=== PATIENT | female | born 1955 | race Two or more races ===

== ENCOUNTER 2019-01-14 11:32 | Emergency (ER) | payer MEDICAID ==
[~2019-01-14] VITALS: Ht 165.1 cm; Wt 83.9 kg
[~2019-01-14 11:32] MED LIST: CHOL20007 OR; DOCU-94 PO; FENO160T8 PO; INSUINJ37 SC; IPRIH INH; LIRA18IN2 SUBCUT; LOSA-49 PO; METF-370 PO; PANT40T PO; SIMV-8 PO; SUCR1SUS10 PO; TRAM50TA2 PO; TRAZ100T2 PO
[2019-01-14] MEDS ORDERED: NITROGLYCERIN 0.4 MG SL TAB SL ONE (11:45)
[2019-01-14] MEDS ORDERED: ASPirin 81 mg TAB PO ONE (11:45)
[2019-01-14 12:36] LABS: Urine Bacteria NONE SEEN /hpf (None Seen); Urine Blood Negative /uL (Negative); Urine Mucus FEW (None Seen); Urine Specific Gravity 1.023 (1.001-1.035); Urine WBC 1 /hpf (0 - 5)
[2019-01-14 12:58] LABS: Basophils # (auto) 0.1 uL; Basophils % (auto) 0.9 % (0.0-2.0); Eosinophils # (auto) 0.3 uL; Eosinophils % (auto) 4.6 % (0.0-7.0); Hematocrit 39.8 % (36.0-46.0); Hemoglobin 13.3 g/dL (12.2-16.2); Lymphocytes # (auto) 2.1 uL; Lymphocytes % (auto) 32.3 % (10.0-50.0); Mean Corpuscular Hemoglobin 29.5 pg (28.0-32.0); Mean Corpuscular Hgb Conc. 33.4 g/dL (32.0-36.0); Mean Corpuscular Volume 88.4 fL (80.0-100.0); Monocytes # (auto) 0.5 uL; Monocytes % (auto) 7.1 % (0.0-12.0); Neutrophils # (auto) 3.6 uL; Neutrophils % (auto) 55.1 % (37.0-80.0); Nucleated Red Blood Cells % 0.1 %; Platelet Count (auto) 225 10^3/uL (140-450); Red Cell Distribution Width 13.3 % (11.8-14.3); White Blood Cell 6.6 10^3/uL (4.4-10.8)
[2019-01-14 13:21] LABS: Alanine Aminotransferase 32 U/L (13-56); Albumin 3.8 g/dL (3.4-5.0); Anion Gap 8 (5-15); Blood Urea Nitrogen 15 mg/dL (7-18); Calcium 8.8 mg/dL (8.5-10.1); Carbon Dioxide 26 mmol/L (21-32); Chloride 104 mmol/L (98-107); Glucose 199 mg/dL (74-106); Potassium 3.8 mmol/L (3.5-5.1); Sodium 138 mmol/L (136-145)
[2019-01-14 13:26] LABS: Alkaline Phosphatase 81 U/L (45-117); Aspartate Aminotransferase 13 U/L (15-37); BUN/Creatinine Ratio 22.7; Bilirubin, Total 0.3 mg/dL (0.2-1.0); GFR African American 116 mL/min; GFR Non-African American 96 mL/min; Total Protein 7.4 g/dL (6.4-8.2)
[2019-01-14 13:54] VITALS: BP 146/76
== END 2019-01-14 13:55 | disposition home or self-care (01) ==
LOC: EDBD 11:32 → ER 11:39
DX: R07.89 Other chest pain (principal); I10 Essential (primary) hypertension; J44.9 Chronic obstructive pulmonary disease, unspecified; E11.9 Type 2 diabetes mellitus without complications; E78.5 Hyperlipidemia, unspecified; F17.210 Nicotine dependence, cigarettes, uncomplicated; Z90.49 Acquired absence of other specified parts of digestive tract; Z90.710 Acquired absence of both cervix and uterus; Z88.1 Allergy status to other antibiotic agents; Z88.6 Allergy status to analgesic agent
CPT/HCPCS: 36415; 80053; 81001; 83880; 84484; 85025; 93005

== ENCOUNTER 2019-05-13 07:24 | Emergency (ER) | payer MEDICAID ==
[~2019-05-13] VITALS: Ht 165.1 cm; Wt 82.1 kg
[~2019-05-13 07:24] MED LIST changes: +LOSA-39 PO; -LOSA-49 PO
[2019-05-13 09:02] LABS: Urine Bacteria FEW /hpf (None Seen); Urine Blood 2+ /uL (Negative); Urine WBC 223 /hpf (0 - 5); Urine WBC Clumps PRESENT /hpf (None Seen)
[2019-05-13 10:11] VITALS: BP 121/62
== END 2019-05-13 10:40 | disposition home or self-care (01) ==
LOC: ER 07:34
DX: N39.0 Urinary tract infection, site not specified (principal); J44.9 Chronic obstructive pulmonary disease, unspecified; E11.9 Type 2 diabetes mellitus without complications; E78.5 Hyperlipidemia, unspecified; I10 Essential (primary) hypertension; F17.210 Nicotine dependence, cigarettes, uncomplicated; Z88.8 Allergy status to other drugs, medicaments and biological substances; Z88.1 Allergy status to other antibiotic agents; Z79.899 Other long term (current) drug therapy; Z90.49 Acquired absence of other specified parts of digestive tract; Z90.710 Acquired absence of both cervix and uterus
CPT/HCPCS: 74176; 81001

== ENCOUNTER 2019-12-17 17:21 | Emergency (ER) | payer MEDICAID ==
[~2019-12-17] VITALS: Ht 165.1 cm; Wt 81.6 kg
[~2019-12-17 17:21] MED LIST changes: -TRAZ100T2 PO; +TRAZ100T3 PO
[2019-12-17 17:40] VITALS: BP 146/68
[2019-12-17] MEDS ORDERED: ALBUTEROL SULF 2.5 MG/0.5ML(0.5%) NEB SOLN NEB ONE (20:15)
[2019-12-17] MEDS ORDERED: IPRATROPIUM BROM 0.5 MG/2.5ML INH SOL NEB ONE (20:15)
[2019-12-17] MEDS ORDERED: cefTRIAXone SOD 1,000 MG VL IM ONE (20:15)
== END 2019-12-17 21:08 | disposition home or self-care (01) ==
LOC: ER 17:21
DX: J18.9 Pneumonia, unspecified organism (principal); J44.9 Chronic obstructive pulmonary disease, unspecified; E11.9 Type 2 diabetes mellitus without complications; E78.5 Hyperlipidemia, unspecified; I10 Essential (primary) hypertension
CPT/HCPCS: 71046; 93005; 94640; 96372; 99283; J0696; J7644

== ENCOUNTER 2020-01-10 17:19 | Emergency (ER) | payer MEDICAID ==
[~2020-01-10] VITALS: Ht 165.1 cm; Wt 82.1 kg
[2020-01-10 17:31] VITALS: BP 146/81
[2020-01-10] MEDS ORDERED: LIDOCAINE 1% (LOCAL ANESTH.) PF 5ml SDV ID ONE (18:30)
[2020-01-10] MEDS ORDERED: LIDOCAINE W/ EPINEPHRINE 1 % INJ 30ML ONE (18:40)
[2020-01-10] MEDS ORDERED: cefTRIAXone SOD 1,000 MG VL IM ONE (19:30)
[2020-01-10] MEDS ORDERED: HYDROcodone-ACET 7.5/325MG TAB PO ONE (19:45)
== END 2020-01-10 19:57 | disposition home or self-care (01) ==
LOC: ER 17:19
DX: L02.212 Cutaneous abscess of back [any part, except buttock and flank] (principal); J44.9 Chronic obstructive pulmonary disease, unspecified; I10 Essential (primary) hypertension; E11.9 Type 2 diabetes mellitus without complications; E78.5 Hyperlipidemia, unspecified; F17.210 Nicotine dependence, cigarettes, uncomplicated; Z90.49 Acquired absence of other specified parts of digestive tract; Z90.710 Acquired absence of both cervix and uterus; Z79.899 Other long term (current) drug therapy
CPT/HCPCS: 10060; 96372; 99283; C1887; J0696; J2001

== ENCOUNTER 2020-01-12 13:37 | Emergency (ER) | payer MEDICAID ==
[~2020-01-12] VITALS: Ht 165.1 cm; Wt 82.1 kg
[2020-01-12 16:41] VITALS: BP 164/71
== END 2020-01-12 16:48 | disposition home or self-care (01) ==
LOC: ER 13:37
DX: J44.9 Chronic obstructive pulmonary disease, unspecified (principal); E11.9 Type 2 diabetes mellitus without complications; E78.5 Hyperlipidemia, unspecified; I10 Essential (primary) hypertension; F17.210 Nicotine dependence, cigarettes, uncomplicated; Z90.49 Acquired absence of other specified parts of digestive tract; Z48.01 Encounter for change or removal of surgical wound dressing; Z90.710 Acquired absence of both cervix and uterus

== ENCOUNTER 2020-01-14 18:06 | Emergency (ER) | payer MEDICAID ==
[~2020-01-14] VITALS: Ht 165.1 cm; Wt 82.1 kg
[2020-01-14] MEDS ORDERED: KETOROLAC TROMETH 60MG/2ML VIAL IM ONE (20:30)
[2020-01-14] MEDS ORDERED: LIDOCAINE 1% HCL (LOCAL ANESTH.) INJ 20ML MDV ONE (20:33)
[2020-01-14] MEDS ORDERED: LIDOCAINE 1% HCL (LOCAL ANESTH.) INJ 20ML MDV ID ONE (20:45)
[2020-01-14 21:46] VITALS: BP 144/88
== END 2020-01-14 22:38 | disposition home or self-care (01) ==
LOC: ER 18:07
DX: L02.212 Cutaneous abscess of back [any part, except buttock and flank] (principal); J44.9 Chronic obstructive pulmonary disease, unspecified; I10 Essential (primary) hypertension; E11.9 Type 2 diabetes mellitus without complications; E78.5 Hyperlipidemia, unspecified; F17.210 Nicotine dependence, cigarettes, uncomplicated; Z90.49 Acquired absence of other specified parts of digestive tract; Z90.710 Acquired absence of both cervix and uterus; Z79.899 Other long term (current) drug therapy
CPT/HCPCS: 10060; 96372; 99283; C1887; J1885; J2001

== ENCOUNTER 2020-01-16 18:15 | Emergency (ER) | payer MEDICAID ==
[~2020-01-16] VITALS: Ht 165.1 cm; Wt 82.1 kg
[2020-01-16] MEDS ORDERED: KETOROLAC TROMETH 60MG/2ML VIAL IM ONE (20:15)
[2020-01-16 20:43] VITALS: BP 122/66
== END 2020-01-16 21:13 | disposition home or self-care (01) ==
LOC: ER 18:15
DX: Z48.01 Encounter for change or removal of surgical wound dressing (principal)
CPT/HCPCS: 96372; 99283; J1885

== ENCOUNTER 2020-01-19 18:06 | Emergency (ER) | payer MEDICAID ==
[~2020-01-19] VITALS: Ht 165.1 cm; Wt 82.1 kg
[2020-01-19 19:21] VITALS: BP 122/77
== END 2020-01-19 20:02 | disposition home or self-care (01) ==
LOC: ER 18:06
DX: L02.212 Cutaneous abscess of back [any part, except buttock and flank] (principal); J44.9 Chronic obstructive pulmonary disease, unspecified; E11.9 Type 2 diabetes mellitus without complications; E78.5 Hyperlipidemia, unspecified; I10 Essential (primary) hypertension; Z48.00 Encounter for change or removal of nonsurgical wound dressing; Z90.49 Acquired absence of other specified parts of digestive tract; Z90.710 Acquired absence of both cervix and uterus

== ENCOUNTER 2020-01-22 18:33 | Emergency (ER) | payer MEDICAID ==
[~2020-01-22] VITALS: Ht 165.1 cm; Wt 82.1 kg
[2020-01-22 22:40] VITALS: BP 135/66
== END 2020-01-22 23:00 | disposition home or self-care (01) ==
LOC: ER 18:33
DX: Z48.01 Encounter for change or removal of surgical wound dressing (principal); I10 Essential (primary) hypertension; J44.9 Chronic obstructive pulmonary disease, unspecified; E78.5 Hyperlipidemia, unspecified; E11.9 Type 2 diabetes mellitus without complications

== ENCOUNTER 2020-01-26 09:46 | Emergency (ER) | payer MEDICAID ==
[~2020-01-26] VITALS: Ht 165.1 cm; Wt 80.7 kg
[2020-01-26 10:32] VITALS: BP 178/88
== END 2020-01-26 10:43 | disposition home or self-care (01) ==
LOC: ER 09:46
DX: Z48.01 Encounter for change or removal of surgical wound dressing (principal); J44.9 Chronic obstructive pulmonary disease, unspecified; E11.9 Type 2 diabetes mellitus without complications; E78.5 Hyperlipidemia, unspecified; I10 Essential (primary) hypertension

== ENCOUNTER 2020-05-22 10:37 | Inpatient (IN) | payer MEDICAID ==
[~2020-05-22] VITALS: Ht 165.1 cm; Wt 81.6 kg
[2020-05-22 12:11] LABS: Basophils # (auto) 0.1 10 ^3/uL (0-0.2); Eosinophils # (auto) 0.3 10 ^3/uL (0-0.8); Eosinophils % (auto) 4.3 % (0.0-7.0); Hemoglobin 12.8 g/dL (12.2-16.2); Lymphocytes # (auto) 2.4 10 ^3/uL (0.4-5.4); Mean Corpuscular Hemoglobin 29.3 pg (28.0-32.0); Mean Corpuscular Hgb Conc. 33.6 g/dL (32.0-36.0); Mean Corpuscular Volume 87.2 fL (80.0-100.0); Monocytes # (auto) 0.4 10 ^3/uL (0-1.3); Monocytes % (auto) 6.6 % (0.0-12.0); Neutrophils # (auto) 3.6 10 ^3/uL (1.6-8.6); Neutrophils % (auto) 53.1 % (37.0-80.0); Nucleated Red Blood Cells % 0.1 %; Platelet Count (auto) 225 10^3/uL (140-450); Red Blood Cells 4.35 10^6/uL (4.0-5.20); Red Cell Distribution Width 13.7 % (11.8-14.3); White Blood Cell 6.8 10^3/uL (4.4-10.8)
[2020-05-22 12:40] LABS: Albumin 3.9 g/dL (3.4-5.0); Anion Gap 3 (5-15); Blood Urea Nitrogen 16 mg/dL (7-18); Carbon Dioxide 26 mmol/L (21-32); Chloride 107 mmol/L (98-107); Glucose 184 mg/dL (74-106); Potassium 3.7 mmol/L (3.5-5.1); Sodium 136 mmol/L (136-145)
[2020-05-22 12:45] LABS: Alanine Aminotransferase 35 U/L (13-56); Alkaline Phosphatase 89 U/L (45-117); Aspartate Aminotransferase 18 U/L (15-37); BUN/Creatinine Ratio 16.2; Bilirubin, Total 0.4 mg/dL (0.2-1.0); GFR African American 73 mL/min; GFR Non-African American 60 mL/min; Total Protein 7.3 g/dL (6.4-8.2)
[2020-05-22 13:33] LABS: INR 1.02 (0.9-1.15); Partial Thromboplastin Time 26.2 sec (23.0-31.2)
[2020-05-22] MEDS ORDERED: IODIXANOL 320MG/ML 100ML BTL IV ONE ×2 (16:09→16:40)
[2020-05-22] MEDS ORDERED: IOHEXOL 350 MG/ML 100ML IJ ONE (16:25)
[2020-05-22] MEDS ORDERED: MORPHINE SULF INJ 2 MG/ML SYRINGE 1ML IV ONE (19:15)
[2020-05-22] MEDS ORDERED: ONDANSETRON HCL 4 MG/2 ML VIAL IV ONE (19:15)
[2020-05-22] MEDS ORDERED: DEXTROSE (50%) 50ML SYRG IV PRN (19:30)
[2020-05-22] MEDS ORDERED: MORPHINE SULFATE 4 MG/ML SYR/VIAL IV PRN (19:30)
[2020-05-22] MEDS ORDERED: LORazepam 0.5 MG TAB PO PRN (19:30)
[2020-05-22] MEDS ORDERED: ALUM & MAG HYDROX-SIMETH LIQ(MAALOX) 30 ML PO ONE (19:30)
[2020-05-22] MEDS ORDERED: ONDANSETRON HCL 4 MG/2 ML VIAL IV PRN (19:30)
[2020-05-22] MEDS ORDERED: NITROGLYCERIN 0.4 MG SL TAB SL PRN ×2 (19:30)
[2020-05-22] MEDS ORDERED: IPRATROPIUM BROM 0.5 MG/2.5ML INH SOL NEB PRN (19:45)
[2020-05-22] MEDS ORDERED: LOSARTAN POTASSIUM 50 MG TAB PO ONE (19:45)
[2020-05-22] MEDS ORDERED: ALBUTEROL SULF 2.5 MG/0.5ML(0.5%) NEB SOLN NEB PRN (19:45)
[2020-05-22] MEDS ORDERED: cloNIDine HCL 0.1 MG TAB PO PRN (19:45)
[2020-05-22] MEDS: SODIUM CHLORIDE 0.9% 1,000 ML IV SCH (20:03)
[2020-05-22 20:09] LABS: Urine Bacteria FEW /hpf (None Seen); Urine Mucus FEW (None Seen); Urine WBC 18 /hpf (0 - 5)
[2020-05-22] MEDS: ACCU-CHEK COMFORT CURVE STRIP VI SCH (22:00)
[2020-05-22] MEDS: traZODone HCL 50 MG TAB PO SCH (22:59)
[2020-05-22] MEDS: ATORVASTATIN 20 MG TAB PO SCH (23:00)
[2020-05-22] MEDS: InsuLIN REG 1unit/0.01ml Soln (100units/ml) SC SCH (23:00)
[2020-05-22] MEDS: METOPROLOL TARTRATE 25 MG TAB PO SCH (23:00)
[2020-05-23 01:16] VITALS: BP 141/69
[2020-05-23 05:00] VITALS: BP 120/71
[2020-05-23] MEDS: ACCU-CHEK COMFORT CURVE STRIP VI SCH ×4 (06:02→21:55)
[2020-05-23] MEDS: InsuLIN REG 1unit/0.01ml Soln (100units/ml) SC SCH ×5 (06:04→21:56)
[2020-05-23] MEDS: SODIUM CHLORIDE 0.9% 1,000 ML IV SCH (08:27)
[2020-05-23] MEDS ORDERED: MAGNESIUM SULFATE 1GM/100ML 100 ML IV ONE (09:15)
[2020-05-23 09:16] VITALS: BP 112/60
[2020-05-23] MEDS: DOCUSATE SOD 100 MG CAP PO SCH (09:33)
[2020-05-23] MEDS: LOSARTAN POTASSIUM 25 MG TAB PO SCH (09:33)
[2020-05-23] MEDS: ASPirin 81 mg TAB PO SCH (09:33)
[2020-05-23] MEDS: METOPROLOL TARTRATE 25 MG TAB PO SCH ×2 (09:34→21:55)
[2020-05-23] MEDS: CHOLECALCIFEROL (VITD3) 2,000 UNIT CAP PO SCH (09:34)
[2020-05-23] MEDS: ENOXAPARIN SOD 40 MG/0.4 ML SYRINGE SC SCH (09:34)
[2020-05-23 10:07] LABS: Cholesterol 109 mg/dL (< 200)
[2020-05-23 10:09] LABS: HDL Cholesterol 36 mg/dL (40-59); LDL Cholesterol 61 mg/dL (< 100); Triglycerides 169 mg/dL (< 150)
[2020-05-23 12:29] VITALS: BP 118/73
[2020-05-23] MEDS: NICOTINE 7MG/24HR TOPICAL PATCH TD SCH (12:31)
[2020-05-23] MEDS: MORPHINE SULF INJ 2 MG/ML SYRINGE 1ML IV PRN ×2 (13:05→19:26)
[2020-05-23 16:50] VITALS: BP 129/75
[2020-05-23 21:45] VITALS: BP 151/66
[2020-05-23] MEDS: PANTOPRAZOLE 40 MG TAB PO SCH (21:54)
[2020-05-23] MEDS: ATORVASTATIN 20 MG TAB PO SCH (21:55)
[2020-05-23] MEDS: traZODone HCL 50 MG TAB PO SCH (21:55)
[2020-05-24 04:59] VITALS: BP 131/71
[2020-05-24] MEDS: ACCU-CHEK COMFORT CURVE STRIP VI SCH ×4 (06:32→22:04)
[2020-05-24] MEDS: InsuLIN REG 1unit/0.01ml Soln (100units/ml) SC SCH ×4 (06:32→22:07)
[2020-05-24 09:00] VITALS: BP 168/86
[2020-05-24] MEDS ORDERED: ADENOSINE 69 MG in GIVE UN-DILUTED 0 ML IV ONE (09:15)
[2020-05-24 10:25] VITALS: BP 152/99
[2020-05-24] MEDS: DOCUSATE SOD 100 MG CAP PO SCH (12:22)
[2020-05-24] MEDS: ASPirin 81 mg TAB PO SCH (12:22)
[2020-05-24] MEDS: LOSARTAN POTASSIUM 25 MG TAB PO SCH (12:23)
[2020-05-24] MEDS: METOPROLOL TARTRATE 25 MG TAB PO SCH ×2 (12:23→22:04)
[2020-05-24] MEDS: PANTOPRAZOLE 40 MG TAB PO SCH (12:24)
[2020-05-24] MEDS: NICOTINE 7MG/24HR TOPICAL PATCH TD SCH (12:25)
[2020-05-24] MEDS: CHOLECALCIFEROL (VITD3) 2,000 UNIT CAP PO SCH (12:26)
[2020-05-24] MEDS: ENOXAPARIN SOD 40 MG/0.4 ML SYRINGE SC SCH (12:31)
[2020-05-24 13:00] VITALS: BP 159/95
[2020-05-24 17:00] VITALS: BP 142/83
[2020-05-24] MEDS: traZODone HCL 50 MG TAB PO SCH (22:04)
[2020-05-24] MEDS: ATORVASTATIN 20 MG TAB PO SCH (22:04)
[2020-05-24 22:30] VITALS: BP 147/79
[2020-05-25 05:18] VITALS: BP 153/90
[2020-05-25] MEDS: InsuLIN REG 1unit/0.01ml Soln (100units/ml) SC SCH ×2 (06:59→11:55)
[2020-05-25] MEDS: ACCU-CHEK COMFORT CURVE STRIP VI SCH ×2 (06:59→11:54)
[2020-05-25] MEDS: ASPirin 81 mg TAB PO SCH (09:57)
[2020-05-25] MEDS: LOSARTAN POTASSIUM 25 MG TAB PO SCH (09:59)
[2020-05-25] MEDS: ENOXAPARIN SOD 40 MG/0.4 ML SYRINGE SC SCH (10:00)
[2020-05-25] MEDS: DOCUSATE SOD 100 MG CAP PO SCH (10:00)
[2020-05-25] MEDS: METOPROLOL TARTRATE 25 MG TAB PO SCH (10:00)
[2020-05-25] MEDS: PANTOPRAZOLE 40 MG TAB PO SCH (10:00)
[2020-05-25] MEDS: CHOLECALCIFEROL (VITD3) 2,000 UNIT CAP PO SCH (10:00)
[2020-05-25] MEDS: NICOTINE 7MG/24HR TOPICAL PATCH TD SCH (10:02)
[2020-05-25 11:26] VITALS: BP 153/85
== END 2020-05-25 12:15 | disposition home or self-care (01) | DRG 243 ==
LOC: ER 10:37 → TELE 10:38 → TELE-WESTW 05-23
PROVIDERS: ADMIT Hospitalist; ATTEND Hospitalist
DX: K21.9 Gastro-esophageal reflux disease without esophagitis (principal); I16.9 Hypertensive crisis, unspecified; E66.9 Obesity, unspecified; J44.9 Chronic obstructive pulmonary disease, unspecified; E11.9 Type 2 diabetes mellitus without complications; F32.9 Major depressive disorder, single episode, unspecified; E78.5 Hyperlipidemia, unspecified; E83.42 Hypomagnesemia; Q25.72 Congenital pulmonary arteriovenous malformation; I10 Essential (primary) hypertension; F17.210 Nicotine dependence, cigarettes, uncomplicated; Z90.710 Acquired absence of both cervix and uterus; Z79.4 Long term (current) use of insulin; Z68.30 Body mass index [BMI] 30.0-30.9, adult; Z80.1 Family history of malignant neoplasm of trachea, bronchus and lung; Z82.0 Family history of epilepsy and other diseases of the nervous system; Z82.49 Family history of ischemic heart disease and other diseases of the circulatory system; Z90.49 Acquired absence of other specified parts of digestive tract; Z79.84 Long term (current) use of oral hypoglycemic drugs
CPT/HCPCS: 36415; 71046; 71275; 78452; 80053; 80061; 81015; 82962; 83036; 83735; 83880; 84443; 84484; 85025; 85379; 85610; 85730; 93005; 93017; 93306; G0378; J0153; J1815; J2405; Q9967

== ENCOUNTER 2022-01-11 17:55 | Emergency (ER) | payer OTHER, MEDICAID ==
[~2022-01-11] VITALS: Ht 165.1 cm; Wt 79.4 kg
[2022-01-11] MEDS ORDERED: FLUCONAZOLE 100 MG TAB PO ONE (19:30)
[2022-01-11 19:41] LABS: Urine Bacteria NONE SEEN /hpf (None Seen); Urine Blood Negative /uL (Negative); Urine Specific Gravity 1.006 (1.001-1.035); Urine WBC 1 /hpf (0 - 5)
[2022-01-11] MEDS ORDERED: KETOROLAC TROMETH 30 MG/ML 1ML VIAL IM ONE (20:30)
[2022-01-11 22:00] VITALS: BP 158/83
== END 2022-01-11 23:08 | disposition home or self-care (01) ==
LOC: ER 17:55
DX: B37.3 Candidiasis of vulva and vagina (principal); E11.65 Type 2 diabetes mellitus with hyperglycemia; J44.9 Chronic obstructive pulmonary disease, unspecified; E78.5 Hyperlipidemia, unspecified; I10 Essential (primary) hypertension; F17.210 Nicotine dependence, cigarettes, uncomplicated; Z90.49 Acquired absence of other specified parts of digestive tract; Z90.710 Acquired absence of both cervix and uterus
CPT/HCPCS: 74176; 81001; 82962; 96372; 99285; J1885

== ENCOUNTER 2022-06-21 15:38 | Emergency (ER) | payer OTHER, MEDICAID ==
[~2022-06-21] VITALS: Ht 165.1 cm; Wt 81.0 kg
[2022-06-21] MEDS ORDERED: HYDROcodone-ACET 5/325MG TAB PO ONE (17:45)
[2022-06-21 18:45] VITALS: BP 120/72
[2022-06-21] MEDS ORDERED: IBUP800T27 PO (18:56)
== END 2022-06-21 19:04 | disposition home or self-care (01) ==
LOC: ER 15:38
DX: S90.32XA Contusion of left foot, initial encounter (principal); I10 Essential (primary) hypertension; E11.9 Type 2 diabetes mellitus without complications; J44.9 Chronic obstructive pulmonary disease, unspecified; E78.5 Hyperlipidemia, unspecified; F17.210 Nicotine dependence, cigarettes, uncomplicated; Z90.49 Acquired absence of other specified parts of digestive tract; Z90.710 Acquired absence of both cervix and uterus; Z79.4 Long term (current) use of insulin; Z79.899 Other long term (current) drug therapy; Z79.1 Long term (current) use of non-steroidal anti-inflammatories (NSAID); W20.8XXA Other cause of strike by thrown, projected or falling object, initial encounter; Y93.89 Activity, other specified; Y92.89 Other specified places as the place of occurrence of the external cause; Y99.8 Other external cause status
CPT/HCPCS: 73630

== ENCOUNTER 2022-07-08 23:26 | Emergency (ER) | payer OTHER, MEDICAID ==
[~2022-07-08] VITALS: Ht 165.1 cm; Wt 70.0 kg
[~2022-07-08 23:26] MED LIST changes: +IBUP800T27 PO
[2022-07-09 00:35] LABS: Basophils # (auto) 0.1 10 ^3/uL (0-0.2); Basophils % (auto) 0.7 % (0.0-2.0); Eosinophils # (auto) 0.2 10 ^3/uL (0-0.8); Eosinophils % (auto) 2.4 % (0.0-7.0); Hemoglobin 13.4 g/dL (12.2-16.2); Lymphocytes # (auto) 2.4 10 ^3/uL (0.4-5.4); Mean Corpuscular Hemoglobin 29.9 pg (28.0-32.0); Mean Corpuscular Hgb Conc. 34.3 g/dL (32.0-36.0); Mean Corpuscular Volume 87.3 fL (80.0-100.0); Monocytes # (auto) 0.6 10 ^3/uL (0-1.3); Monocytes % (auto) 7.6 % (0.0-12.0); Neutrophils # (auto) 5.2 10 ^3/uL (1.6-8.6); Neutrophils % (auto) 61.3 % (37.0-80.0); Red Blood Cells 4.47 10^6/uL (4.0-5.20); Red Cell Distribution Width 12.9 % (11.8-14.3); White Blood Cell 8.5 10^3/uL (4.4-10.8)
[2022-07-09] MEDS ORDERED: cloNIDine HCL 0.1 MG TAB PO ONE (00:45)
[2022-07-09 00:54] LABS: Albumin 3.8 g/dL (3.4-5.0); BUN/Creatinine Ratio 15.8; Calcium 9.3 mg/dL (8.5-10.1); Potassium 3.5 mmol/L (3.5-5.1)
[2022-07-09 00:57] LABS: Bilirubin, Total 0.3 mg/dL (0.2-1.0)
[2022-07-09 01:45] VITALS: BP 185/95
== END 2022-07-09 01:49 | disposition home or self-care (01) ==
LOC: EDBD 23:26 → ER 23:28
DX: I10 Essential (primary) hypertension (principal); E11.9 Type 2 diabetes mellitus without complications; F41.9 Anxiety disorder, unspecified; J44.9 Chronic obstructive pulmonary disease, unspecified; E78.5 Hyperlipidemia, unspecified; F17.210 Nicotine dependence, cigarettes, uncomplicated; Z90.710 Acquired absence of both cervix and uterus; Z90.49 Acquired absence of other specified parts of digestive tract
CPT/HCPCS: 36415; 71045; 80053; 83880; 84484; 85025; 93005

== ENCOUNTER 2023-01-13 10:56 | Inpatient (IN) | payer OTHER, MEDICAID ==
[~2023-01-13] VITALS: Ht 165.1 cm; Wt 83.7 kg
[2023-01-13 11:36] LABS: Basophils # (auto) 0.1 10 ^3/uL (0-0.2); Basophils % (auto) 0.5 % (0.0-2.0); Eosinophils # (auto) 0.2 10 ^3/uL (0-0.8); Eosinophils % (auto) 1.1 % (0.0-7.0); Hematocrit 42.2 % (36.0-46.0); Lymphocytes # (auto) 3.1 10 ^3/uL (0.4-5.4); Mean Corpuscular Hemoglobin 29.1 pg (28.0-32.0); Mean Corpuscular Hgb Conc. 33.2 g/dL (32.0-36.0); Mean Corpuscular Volume 87.6 fL (80.0-100.0); Monocytes # (auto) 0.8 10 ^3/uL (0-1.3); Monocytes % (auto) 5.2 % (0.0-12.0); Neutrophils # (auto) 10.7 10 ^3/uL (1.6-8.6); Neutrophils % (auto) 72.2 % (37.0-80.0); Red Blood Cells 4.82 10^6/uL (4.0-5.20); Red Cell Distribution Width 13.1 % (11.8-14.3); White Blood Cell 14.8 10^3/uL (4.4-10.8)
[2023-01-13 11:51] LABS: Albumin 3.8 g/dL (3.4-5.0); Calcium 9.7 mg/dL (8.5-10.1); Potassium 3.5 mmol/L (3.5-5.1)
[2023-01-13 11:55] LABS: BUN/Creatinine Ratio 15.5 (10.0-20.0); Bilirubin, Total 0.5 mg/dL (0.2-1.0); Total Protein 7.4 g/dL (6.4-8.2)
[2023-01-13 12:14] LABS: Urine Bacteria NONE SEEN /hpf (None Seen); Urine Blood Negative /uL (Negative); Urine Mucus FEW (None Seen); Urine Specific Gravity 1.019 (1.001-1.035); Urine WBC 3 /hpf (0 - 5)
[2023-01-13] MEDS ORDERED: PROCHLORPERAZINE EDISYLATE 5 MG/ML 2ML VIAL IM ONE (12:45)
[2023-01-13] MEDS ORDERED: PANTOPRAZOLE 40 MG/10 ML VIAL INJ IV ONE (12:45)
[2023-01-13] MEDS ORDERED: MORPHINE SULFATE INJ 2 MG/ml SYRG IM ONE (12:45)
[2023-01-13] MEDS ORDERED: SODIUM CHLORIDE 0.9% 1,000 ML IVB ONE (12:45)
[2023-01-13] MEDS ORDERED: ONDANSETRON HCL 4 MG/2 ML VIAL IV ONE (15:45)
[2023-01-13] MEDS ORDERED: LIDOCAINE VISCOUS 2% 15ML UD MT ONE (15:45)
[2023-01-13] MEDS ORDERED: MORPHINE SULFATE 4 MG/ML SYR/VIAL IV ONE (15:45)
[2023-01-13] MEDS ORDERED: NITROGLYCERIN 0.4 MG SL TAB SL PRN (16:00)
[2023-01-13] MEDS ORDERED: DEXTROSE (50%) 50ML SYRG IV PRN (16:00)
[2023-01-13] MEDS ORDERED: cefTRIAXone 1GM/50ML D5W 50 ML IV ONE (16:00)
[2023-01-13] MEDS ORDERED: MORPHINE SULFATE INJ 2 MG/ml SYRG IV PRN (16:00)
[2023-01-13] MEDS: SOD CHL 0.45% WITH 20MEQ KCL 1,000 ML IV SCH (16:53)
[2023-01-13] MEDS: InsuLIN REG 1unit/0.01ml Soln (100units/ml) SC SCH ×2 (18:25→23:47)
[2023-01-13] MEDS: ACCU-CHEK COMFORT CURVE STRIP VI SCH ×2 (18:26→23:46)
[2023-01-13] MEDS: MORPHINE SULFATE INJ 2 MG/ml SYRG IV PRN ×2 (20:31→23:48)
[2023-01-13] MEDS: FAMOTIDINE (10MG/ML) 2ML VL IV SCH (22:28)
[2023-01-13] MEDS: PROMETHAZINE HCL 25 MG/ML 1ML IV PRN (23:46)
[2023-01-13] MEDS: MORPHINE SULFATE 4 MG/ML SYR/VIAL IV PRN (23:48)
[2023-01-14] MEDS ORDERED: ALBU108A5 INH (00:23)
[2023-01-14 05:00] VITALS: BP 149/81
[2023-01-14] MEDS: PROMETHAZINE HCL 25 MG/ML 1ML IV PRN (06:03)
[2023-01-14] MEDS: ACCU-CHEK COMFORT CURVE STRIP VI SCH ×4 (06:03→23:56)
[2023-01-14] MEDS: SOD CHL 0.45% WITH 20MEQ KCL 1,000 ML IV SCH ×2 (06:03→18:38)
[2023-01-14] MEDS: MORPHINE SULFATE 4 MG/ML SYR/VIAL IV PRN ×2 (06:04→23:35)
[2023-01-14] MEDS: InsuLIN REG 1unit/0.01ml Soln (100units/ml) SC SCH ×4 (06:04→23:57)
[2023-01-14 06:12] LABS: INR 1.02 (0.9-1.15); Partial Thromboplastin Time 25.4 sec (24.6-33.4)
[2023-01-14 06:30] LABS: Basophils # (auto) 0 10 ^3/uL (0-0.2); Basophils % (auto) 0.2 % (0.0-2.0); Eosinophils # (auto) 0.1 10 ^3/uL (0-0.8); Hematocrit 38.2 % (36.0-46.0); Hemoglobin 12.8 g/dL (12.2-16.2); Lymphocytes # (auto) 1.6 10 ^3/uL (0.4-5.4); Lymphocytes % (auto) 14.4 % (10.0-50.0); Mean Corpuscular Hemoglobin 29.5 pg (28.0-32.0); Mean Corpuscular Hgb Conc. 33.6 g/dL (32.0-36.0); Mean Corpuscular Volume 87.7 fL (80.0-100.0); Monocytes % (auto) 8.5 % (0.0-12.0); Neutrophils # (auto) 8.6 10 ^3/uL (1.6-8.6); Neutrophils % (auto) 75.9 % (37.0-80.0); Nucleated Red Blood Cells % 0.1 %; Red Blood Cells 4.36 10^6/uL (4.0-5.20); Red Cell Distribution Width 13.1 % (11.8-14.3); White Blood Cell 11.4 10^3/uL (4.4-10.8)
[2023-01-14 06:37] LABS: Potassium 3.8 mmol/L (3.5-5.1)
[2023-01-14 06:42] LABS: BUN/Creatinine Ratio 24.6 (10.0-20.0); Calcium 8.6 mg/dL (8.5-10.1)
[2023-01-14 08:02] VITALS: BP 147/78
[2023-01-14] MEDS: cefTRIAXone 1GM/50ML D5W 50 ML IV SCH (08:44)
[2023-01-14 09:00] VITALS: BP 147/78
[2023-01-14] MEDS: FAMOTIDINE (10MG/ML) 2ML VL IV SCH ×2 (11:12→23:34)
[2023-01-14 13:00] VITALS: BP 135/68
[2023-01-14 16:58] VITALS: BP 152/71
[2023-01-14] MEDS ORDERED: LACTULOSE 20Gm/30ML SOLN PO PRN (18:15)
[2023-01-14 22:00] VITALS: BP 140/81
[2023-01-15] MEDS: SOD CHL 0.45% WITH 20MEQ KCL 1,000 ML IV SCH (02:57)
[2023-01-15 05:00] VITALS: BP 144/71
[2023-01-15] MEDS: InsuLIN REG 1unit/0.01ml Soln (100units/ml) SC SCH ×4 (06:00→18:00)
[2023-01-15] MEDS: ACCU-CHEK COMFORT CURVE STRIP VI SCH ×3 (06:08→18:00)
[2023-01-15 06:47] LABS: Calcium 8.8 mg/dL (8.5-10.1); Potassium 3.8 mmol/L (3.5-5.1)
[2023-01-15 06:50] LABS: BUN/Creatinine Ratio 19.7 (10.0-20.0)
[2023-01-15 06:57] LABS: Basophils # (auto) 0 10 ^3/uL (0-0.2); Basophils % (auto) 0.4 % (0.0-2.0); Eosinophils # (auto) 0.3 10 ^3/uL (0-0.8); Eosinophils % (auto) 4.3 % (0.0-7.0); Hematocrit 36.9 % (36.0-46.0); Hemoglobin 12.5 g/dL (12.2-16.2); Lymphocytes # (auto) 2.6 10 ^3/uL (0.4-5.4); Lymphocytes % (auto) 35.6 % (10.0-50.0); Mean Corpuscular Hemoglobin 30.1 pg (28.0-32.0); Mean Corpuscular Volume 88.4 fL (80.0-100.0); Monocytes # (auto) 0.6 10 ^3/uL (0-1.3); Monocytes % (auto) 8.6 % (0.0-12.0); Neutrophils # (auto) 3.7 10 ^3/uL (1.6-8.6); Neutrophils % (auto) 51.1 % (37.0-80.0); Nucleated Red Blood Cells % 0.1 %; Red Blood Cells 4.17 10^6/uL (4.0-5.20); Red Cell Distribution Width 13.4 % (11.8-14.3); White Blood Cell 7.2 10^3/uL (4.4-10.8)
[2023-01-15 08:00] VITALS: BP 164/86
[2023-01-15 09:00] VITALS: BP 150/85
[2023-01-15] MEDS: cefTRIAXone 1GM/50ML D5W 50 ML IV SCH (09:01)
[2023-01-15] MEDS: FAMOTIDINE (10MG/ML) 2ML VL IV SCH ×2 (09:11→22:09)
[2023-01-15] MEDS: MORPHINE SULFATE INJ 2 MG/ml SYRG IV PRN ×3 (12:07→22:18)
[2023-01-15 13:00] VITALS: BP 160/99
[2023-01-15] MEDS: hydrALAZINE HCL 20 MG/ML VL IV PRN ×2 (15:29→22:10)
[2023-01-15 17:00] VITALS: BP 162/86
[2023-01-15 22:00] VITALS: BP 174/91
[2023-01-16] MEDS: ACCU-CHEK COMFORT CURVE STRIP VI SCH ×4 (00:55→18:00)
[2023-01-16] MEDS: InsuLIN REG 1unit/0.01ml Soln (100units/ml) SC SCH ×4 (01:00→17:59)
[2023-01-16 05:00] VITALS: BP 162/73
[2023-01-16] MEDS: SOD CHL 0.45% WITH 20MEQ KCL 1,000 ML IV SCH ×2 (05:28→10:05)
[2023-01-16] MEDS: hydrALAZINE HCL 20 MG/ML VL IV PRN (06:40)
[2023-01-16 09:00] VITALS: BP 138/74
[2023-01-16] MEDS: FAMOTIDINE (10MG/ML) 2ML VL IV SCH (09:50)
[2023-01-16] MEDS: cefTRIAXone 1GM/50ML D5W 50 ML IV SCH ×3 (09:52→14:03)
[2023-01-16 13:00] VITALS: BP 148/76
[2023-01-16 16:46] VITALS: BP 132/71
[2023-01-16 22:00] VITALS: BP 143/74
[2023-01-16] MEDS ORDERED: traZODone HCL 50 MG TAB PO PRN (22:00)
[2023-01-17] MEDS: ACCU-CHEK COMFORT CURVE STRIP VI SCH ×4 (00:14→17:34)
[2023-01-17] MEDS: InsuLIN REG 1unit/0.01ml Soln (100units/ml) SC SCH ×4 (00:30→17:34)
[2023-01-17 05:07] VITALS: BP 135/76
[2023-01-17] MEDS: cefTRIAXone 1GM/50ML D5W 50 ML IV SCH (08:41)
[2023-01-17 09:00] VITALS: BP 126/70
[2023-01-17 13:00] VITALS: BP 143/70
[2023-01-17 16:49] VITALS: BP 133/70
[2023-01-17] MEDS ORDERED: DOCU-94 PO (17:10)
== END 2023-01-17 17:50 | disposition home or self-care (01) | DRG 388 ==
LOC: ER 10:56 → OVERFLOW 15:47 → WEST WING 23:13
PROVIDERS: ADMIT Hospitalist; ATTEND Hospitalist
PROC: 0D9670Z Drainage of Stomach with Drainage Device, Via Natural or Artificial Opening (ICD-10-PCS; principal; 2023-01-13)
DX: K56.609 Unspecified intestinal obstruction, unspecified as to partial versus complete obstruction (principal); Q25.72 Congenital pulmonary arteriovenous malformation; F41.9 Anxiety disorder, unspecified; I10 Essential (primary) hypertension; K21.9 Gastro-esophageal reflux disease without esophagitis; K57.30 Diverticulosis of large intestine without perforation or abscess without bleeding; E11.9 Type 2 diabetes mellitus without complications; K76.0 Fatty (change of) liver, not elsewhere classified; Z80.1 Family history of malignant neoplasm of trachea, bronchus and lung; Z82.0 Family history of epilepsy and other diseases of the nervous system; Z90.710 Acquired absence of both cervix and uterus; Z93.3 Colostomy status; Z90.49 Acquired absence of other specified parts of digestive tract
CPT/HCPCS: 36415; 71045; 74176; 80048; 80053; 81001; 82962; 83690; 84484; 85025; 85610; 85730; 93005; 96361; 96365; 96372; 96375; C9113; G0378; J0696; J1815; J2405; J3490

== ENCOUNTER 2023-04-19 18:09 | Emergency (ER) | payer OTHER, MEDICAID ==
[~2023-04-19] VITALS: Ht 165.1 cm; Wt 81.9 kg
[~2023-04-19 18:09] MED LIST changes: +ALBU108A5 INH; +FENO160T PO; -FENO160T8 PO; -IBUP800T27 PO; -LIRA18IN2 SUBCUT; -LOSA-39 PO; +LOSA100T58 PO; -PANT40T PO; -SIMV-8 PO; +SIMV20TA20 PO; -SUCR1SUS10 PO; +TRAZ-228 PO; -TRAZ100T3 PO
[2023-04-19 21:02] LABS: Basophils # (auto) 0.1 10 ^3/uL (0-0.2); Basophils % (auto) 0.6 % (0.0-2.0); Eosinophils # (auto) 0.2 10 ^3/uL (0-0.8); Eosinophils % (auto) 2.8 % (0.0-7.0); Hematocrit 40.1 % (36.0-46.0); Hemoglobin 13.3 g/dL (12.2-16.2); Lymphocytes # (auto) 2.8 10 ^3/uL (0.4-5.4); Lymphocytes % (auto) 32.8 % (10.0-50.0); Mean Corpuscular Hemoglobin 29.8 pg (28.0-32.0); Mean Corpuscular Hgb Conc. 33.3 g/dL (32.0-36.0); Mean Corpuscular Volume 89.6 fL (80.0-100.0); Monocytes # (auto) 0.7 10 ^3/uL (0-1.3); Monocytes % (auto) 7.9 % (0.0-12.0); Neutrophils # (auto) 4.7 10 ^3/uL (1.6-8.6); Neutrophils % (auto) 55.9 % (37.0-80.0); Nucleated Red Blood Cells % 0.1 %; Red Blood Cells 4.47 10^6/uL (4.0-5.20); Red Cell Distribution Width 13.4 % (11.8-14.3); White Blood Cell 8.5 10^3/uL (4.4-10.8)
[2023-04-19 21:18] LABS: INR 1.06 (0.9-1.15); Partial Thromboplastin Time 26.5 SEC (24.5-34.5)
[2023-04-19 21:38] LABS: BUN/Creatinine Ratio 22.1 (10.0-20.0); Calcium 9.3 mg/dL (8.5-10.1); Potassium 3.8 mmol/L (3.5-5.1)
[2023-04-19 23:44] LABS: Urine Bacteria NONE SEEN /hpf (None Seen); Urine Blood Negative /uL (Negative); Urine Specific Gravity 1.017 (1.001-1.035)
[2023-04-19 23:45] LABS: Urine WBC 3 /hpf (0 - 5)
[2023-04-20 00:24] VITALS: BP 149/85; PULSE 86; RESP 16; TEMP 97.7; O2SAT 95
== END 2023-04-20 00:06 | disposition home or self-care (01) ==
LOC: ER 18:09
DX: R04.0 Epistaxis (principal); J44.9 Chronic obstructive pulmonary disease, unspecified; E11.9 Type 2 diabetes mellitus without complications; E78.5 Hyperlipidemia, unspecified; I10 Essential (primary) hypertension; F17.210 Nicotine dependence, cigarettes, uncomplicated; Z90.49 Acquired absence of other specified parts of digestive tract; Z90.710 Acquired absence of both cervix and uterus
CPT/HCPCS: 30901; 30905; 36415; 80048; 81001; 85025; 85610; 85730; 86850; 86900; 86901

== ENCOUNTER 2023-04-21 16:03 | Emergency (ER) | payer OTHER, MEDICAID ==
[~2023-04-21] VITALS: Ht 165.1 cm; Wt 83.1 kg
[2023-04-21 16:10] VITALS: BP 127/71; PULSE 98; RESP 18; O2SAT 94
== END 2023-04-21 16:47 | disposition home or self-care (01) ==
LOC: ER 16:03
DX: Z48.00 Encounter for change or removal of nonsurgical wound dressing (principal); F41.9 Anxiety disorder, unspecified; E11.9 Type 2 diabetes mellitus without complications; I10 Essential (primary) hypertension; E78.5 Hyperlipidemia, unspecified; J44.9 Chronic obstructive pulmonary disease, unspecified; F17.210 Nicotine dependence, cigarettes, uncomplicated; Z90.49 Acquired absence of other specified parts of digestive tract; Z90.710 Acquired absence of both cervix and uterus; Z79.4 Long term (current) use of insulin; Z79.84 Long term (current) use of oral hypoglycemic drugs; Z79.899 Other long term (current) drug therapy

== ENCOUNTER 2023-12-06 10:57 | Emergency (ER) | payer OTHER, MEDICAID ==
[~2023-12-06] VITALS: Ht 165.1 cm; Wt 77.4 kg
[2023-12-06 11:38] LABS: Basophils # (auto) 0 10 ^3/uL (0-0.2); Basophils % (auto) 0.4 % (0.0-2.0); Eosinophils # (auto) 0.1 10 ^3/uL (0-0.8); Eosinophils % (auto) 0.8 % (0.0-7.0); Hematocrit 41.6 % (36.0-46.0); Hemoglobin 13.6 g/dL (12.2-16.2); Lymphocytes # (auto) 2.4 10 ^3/uL (0.4-5.4); Lymphocytes % (auto) 30.8 % (10.0-50.0); Mean Corpuscular Hemoglobin 28.6 pg (28.0-32.0); Mean Corpuscular Hgb Conc. 32.6 g/dL (32.0-36.0); Mean Corpuscular Volume 87.7 fL (80.0-100.0); Monocytes # (auto) 0.5 10 ^3/uL (0-1.3); Monocytes % (auto) 5.9 % (0.0-12.0); Neutrophils # (auto) 4.8 10 ^3/uL (1.6-8.6); Neutrophils % (auto) 62.1 % (37.0-80.0); Nucleated Red Blood Cells % 0.1 %; Red Blood Cells 4.74 10^6/uL (4.0-5.20); Red Cell Distribution Width 13.1 % (11.8-14.3); White Blood Cell 7.7 10^3/uL (4.4-10.8)
[2023-12-06 12:04] LABS: Alanine Aminotransferase 23 U/L (7-40); Albumin 4.4 g/dL (3.2-4.8); Alkaline Phosphatase 78 U/L (46-116); Anion Gap 5 (5-15); Aspartate Aminotransferase 23 U/L (13-40); BUN/Creatinine Ratio 15.6 (10.0-20.0); Bilirubin, Total 0.4 mg/dL (0.2-1.0); Blood Urea Nitrogen 14 mg/dL (9-23); Calcium 9.9 mg/dL (8.5-10.1); Carbon Dioxide 29 mmol/L (20-30); Chloride 101 mmol/L (98-107); Glucose 211 mg/dL (74-106); Potassium 3.7 mmol/L (3.5-5.1); Sodium 135 mmol/L (136-145)
[2023-12-06 12:30] LABS: Urine Bacteria FEW /hpf (None Seen); Urine Blood Negative /uL (Negative); Urine Clarity HAZY (Clear); Urine Color Yellow (Yellow); Urine Mucus FEW (None Seen); Urine Protein, UAD TRACE (Negative); Urine Specific Gravity 1.026 (1.001-1.035); Urine Urobilinogen Normal (Negative); Urine WBC 32 /hpf (0 - 5); Urine pH 5.5 (5.0-8.0)
[2023-12-06] MEDS: IBUPROFEN 600 MG TAB PO ONE (13:46)
[2023-12-06] MEDS ORDERED: NITR-87 PO (14:50)
[2023-12-06 15:10] VITALS: BP 133/71; PULSE 64; RESP 17; O2SAT 95
[2023-12-06 15:12] VITALS: TEMP 99.1
== END 2023-12-06 15:11 | disposition home or self-care (01) ==
LOC: ER 10:57
DX: N39.0 Urinary tract infection, site not specified (principal); I10 Essential (primary) hypertension; E11.9 Type 2 diabetes mellitus without complications; E78.5 Hyperlipidemia, unspecified; J44.9 Chronic obstructive pulmonary disease, unspecified; F17.210 Nicotine dependence, cigarettes, uncomplicated; Z90.49 Acquired absence of other specified parts of digestive tract; Z90.710 Acquired absence of both cervix and uterus; Z79.4 Long term (current) use of insulin; Z79.899 Other long term (current) drug therapy
CPT/HCPCS: 36415; 74176; 80053; 81001; 84484; 85025

== ENCOUNTER 2024-01-01 18:06 | Emergency (ER) | payer OTHER, MEDICAID ==
[~2024-01-01] VITALS: Ht 165.1 cm; Wt 83.1 kg
[~2024-01-01 18:06] MED LIST changes: +LOSA-535 PO; -LOSA100T58 PO; +NITR-87 PO
[2024-01-01 18:29] VITALS: BP 151/87; PULSE 80; RESP 18; O2SAT 100
== END 2024-01-01 22:20 | disposition home or self-care (01) ==
LOC: ER 18:06
DX: S70.02XA Contusion of left hip, initial encounter (principal); S90.122A Contusion of left lesser toe(s) without damage to nail, initial encounter; S80.02XA Contusion of left knee, initial encounter; J44.9 Chronic obstructive pulmonary disease, unspecified; E11.9 Type 2 diabetes mellitus without complications; E78.5 Hyperlipidemia, unspecified; I10 Essential (primary) hypertension; F17.210 Nicotine dependence, cigarettes, uncomplicated; Z90.49 Acquired absence of other specified parts of digestive tract; Z90.710 Acquired absence of both cervix and uterus; W18.09XA Striking against other object with subsequent fall, initial encounter; Y93.89 Activity, other specified; Y92.89 Other specified places as the place of occurrence of the external cause; Y99.8 Other external cause status
CPT/HCPCS: 73502; 73562; 73630

== ENCOUNTER → 2025-03-26 | Day surgery (SDC) | payer OTHER, MEDICAID ==
[~2025-03-26] VITALS: Ht 165.1 cm; Wt 83.9 kg
[~2025-03-26] MED LIST changes: -ALBU108A5 INH; +ASPITAB37 PO; +BUPIVACAINE 0.5% MPF INJ 30ML SDV IJ ONE; +CYCL-837 PO; -DOCU-94 PO; +FAMOTIDINE (10MG/ML) 2ML VL IV ONE; +FLUO20TA42 PO; +FLUT1AER5 IN; +GABA-1250 PO; +GLYCOPYRROLATE 0.2 MG/ML 1ML VIAL ONE; +HEPARIN SODIUM (PORCINE) 5000 UNITS/ML 1ML VIAL ONE; +HYDROCORTISONE SOD SUCC 100 MG/2ML INJ VIAL ONE; +HYDROmorphone HCL 2 MG/ML VL/or syr ONE; +INSLISPI SC; -IPRIH INH; +KETOROLAC TROMETH 30 MG/ML 1ML VIAL ONE; +LIDOCAINE 1% HCL (LOCAL ANESTH.) INJ 20ML MDV ONE; +LIDOCAINE 2% (LOCAL ANESTH.) PF 5ml SDV ONE; -METF-370 PO; +MIDAZOLAM HCL 2MG/2ML 2ml VIAL (1mg/ml) ONE; -NITR-87 PO; +OMEP20TA PO; +ONDANSETRON HCL 4 MG/2 ML VIAL IV ONE; +ONDANSETRON HCL 4 MG/2 ML VIAL ONE; +SEMA2INJ3 SC; -TRAM50TA2 PO; -TRAZ-228 PO; +fentaNYL CITRATE 100 MCG/2 ML VL ONE
[2025-03-26] MEDS: HEPARIN SODIUM (PORCINE) 5000 UNITS/ML 1ML VIAL SC ONE (07:25)
[2025-03-26] MEDS: ceFAZolin 2 GM/D5W50ml 50 ML IV ONE (07:55)
[2025-03-26 08:54] VITALS: PULSE 88; RESP 11; TEMP 96.9; O2SAT 96
[2025-03-26 10:00] VITALS: BP 131/67; PULSE 87; RESP 12; O2SAT 97
--- NOTE | 2025-03-26 10:41 | DVHOP ---
DATE OF SURGERY: 03/26/2025 DATE OF SURGERY: 03/26/2025. PREOPERATIVE DIAGNOSIS: Left breast DCIS. POSTOPERATIVE DIAGNOSIS: Left breast DCIS. PROCEDURE: Aborted left breast lumpectomy, left breast ultrasound. SURGEON: Jerardo Winters MD. FIRE INVESTIGATION MANAGER: None ANESTHESIOLOGIST: Dr. Ram. ANESTHESIA: General. INTRAOPERATIVE FINDINGS: * Unable to identify the SHAYLA mri manager reflector with the SHAYLA Consumer Insight Analyst probe. * Unable to clearly identify the preoperative marker or SHAYLA Consumer Insight Analyst probe, even with cross-reference using post localization images. ESTIMATED BLOOD LOSS: Zero. SPECIMENS: None. COMPLICATIONS: None. Procedure well tolerated and transferred to recovery room in stable condition. INDICATIONS FOR PROCEDURE: The patient is a 70-year-old female with left breast DCIS status post SHAYLA Consumer Insight Analyst localization. Based on the above-mentioned information, she was recommended to undergo a left breast lumpectomy after localization. The procedure, risks, and benefits were explained in a detailed and extensive fashion. All questions were answered. She understood and agreed to proceed. DESCRIPTION OF PROCEDURE: The patient was met in the preoperative holding area where the left shoulder was marked indicating the correct site of surgery. She was then widely prepped and draped in the usual sterile fashion. My attention was directed towards the left breast. SHAYLA Consumer Insight Analyst probe was tested indicating adequate functioning. The probe was inspected. There were no cracks in the ceramic and both lights were on. It was sterilely draped and utilized to identify the area of interest. After extensive look and cross-reference with preoperative post localization mammogram, the SHAYLA Consumer Insight Analyst reflector could not be localized. A second probe was inspected and tested, demonstrating no defects or malfunctions. It was then sterilely draped and also utilized extensively without success, failing to identify the SHAYLA Consumer Insight Analyst reflector even with cross-reference with the preoperative post localization mammogram. A sterilely draped ultrasound was utilized in an attempt to localize the devices. Unfortunately, it was not clear preoperative marker and the SHAYLA Consumer Insight Analyst device. The ultrasound probe was set to breast exam and a careful thorough search of the entire breast, particularly in the area suspected. Area of interest cross-referenced with the preoperative mammogram failed to reveal any clear signs of the preoperative marker or SHAYLA Consumer Insight Analyst implant. Therefore, the procedure was terminated. The patient was successfully extubated in the operating room and transferred to the recovery room. After the procedure, a lengthy conversation was held with the patient's family. Arrangement will be made with the SHAYLA Consumer Insight Analyst sales representative cash registers in order to provide insight and consider bringing another device to test before scheduling further intervention. The patient's family were grateful for the information and plan of care. The patient will be discharged home in stable condition. Arrangements will be made for future plan of care. Jerardo Winters MD WBR/VAMSI/AMI TID: [id number] RECEIPT: [id number]
== END | disposition home or self-care (01) ==
LOC: SUR 06:05
DX: D05.12 Intraductal carcinoma in situ of left breast (principal); Z53.8 Procedure and treatment not carried out for other reasons; J43.9 Emphysema, unspecified; E11.9 Type 2 diabetes mellitus without complications; F31.89 Other bipolar disorder; F41.8 Other specified anxiety disorders; E66.9 Obesity, unspecified; Z68.30 Body mass index [BMI] 30.0-30.9, adult; Z79.4 Long term (current) use of insulin; Z79.82 Long term (current) use of aspirin; Z79.899 Other long term (current) drug therapy; Z90.710 Acquired absence of both cervix and uterus; Z90.712 Acquired absence of cervix with remaining uterus; Z90.79 Acquired absence of other genital organ(s); Z98.890 Other specified postprocedural states; Z87.891 Personal history of nicotine dependence; Z83.511 Family history of glaucoma; Z82.49 Family history of ischemic heart disease and other diseases of the circulatory system; Z83.1 Family history of other infectious and parasitic diseases; Z80.3 Family history of malignant neoplasm of breast; Z80.41 Family history of malignant neoplasm of ovary; Z80.51 Family history of malignant neoplasm of kidney; Z80.1 Family history of malignant neoplasm of trachea, bronchus and lung; Z82.0 Family history of epilepsy and other diseases of the nervous system
CPT/HCPCS: 19301; 82962; J0690; J1171; J1644; J1720; J1885; J2003; J2250; J2405; J3010; J3490

== ENCOUNTER → 2025-04-17 | Day surgery (SDC) | payer OTHER, MEDICAID ==
[~2025-04-17] VITALS: Ht 165.1 cm; Wt 83.5 kg
[~2025-04-17] MED LIST changes: -BUPIVACAINE 0.5% MPF INJ 30ML SDV IJ ONE; -FAMOTIDINE (10MG/ML) 2ML VL IV ONE; -GLYCOPYRROLATE 0.2 MG/ML 1ML VIAL ONE; -HEPARIN SODIUM (PORCINE) 5000 UNITS/ML 1ML VIAL ONE; +HYDR-4902 PO; -HYDROCORTISONE SOD SUCC 100 MG/2ML INJ VIAL ONE; +HYDROmorphone HCL 2 MG/ML VL/or syr IV PRN; -KETOROLAC TROMETH 30 MG/ML 1ML VIAL ONE; -LIDOCAINE 1% HCL (LOCAL ANESTH.) INJ 20ML MDV ONE; +METOCLOPRAMIDE HCL 5MG/ml INJ 2ml VIAL ONE; -ONDANSETRON HCL 4 MG/2 ML VIAL IV ONE; +PROPOFOL 10 MG/ML 20 ML IV ONE; +ceFAZolin 2 GM/D5W50ml 50 ML IV ONE; +hydrALAZINE HCL 20 MG/ML VL IV PRN
[2025-04-17] MEDS: BUPIVACAINE 0.5% MPF INJ 30ML SDV IJ ONE (07:42)
[2025-04-17] MEDS: LIDOCAINE 1% HCL (LOCAL ANESTH.) INJ 20ML MDV ONE (07:42)
[2025-04-17 08:17] VITALS: PULSE 79; RESP 14; TEMP 97.1; O2SAT 92
--- NOTE | 2025-04-17 08:29 | DVH ---
MAMMOGRAPHIC GUIDED BREAST NEEDLE LOCALIZATION. INDICATION: LEFT BREAST LUMPECTOMY SX Comparison: 04/09/2025 TECHNIQUE: Radiograph of breast tissue for left lumpectomy surgery. Findings/ IMPRESSION: Surgical specimen is satisfactory in appearance with 2 SHAYLA ms sql server developer present and biopsy clip.
[2025-04-17] MEDS: ACETAMINOPHEN IV 1000 MG/100ML (10MG/ML) IV ONE (08:37)
[2025-04-17] MEDS: ONDANSETRON HCL 4 MG/2 ML VIAL IV ONE (08:47)
--- NOTE | 2025-04-17 09:32 | DVHOP ---
DATE OF SURGERY: 04/17/2025 PREOPERATIVE DIAGNOSIS: Left breast DCIS. POSTOPERATIVE DIAGNOSIS: Left breast DCIS. PROCEDURES: Left breast lumpectomy after SHAYLA Payment Analyst localization and placement of fiducial markers. SURGEON: Jerardo Winters MD FINANCIAL REPORTING ACCOUNTANT: None. ANESTHESIOLOGIST: Bi Cazares CRNA. ANESTHESIA: General by means of laryngeal mask airway. INTRAOPERATIVE FINDINGS: SHAYLA Payment Analyst implant x 2 and preoperative marker located within specimen, confirmed with intraoperative mammogram. ESTIMATED BLOOD LOSS: Minimal. IV FLUIDS: Per anesthesia charting. URINE OUTPUT: Not recorded given a Garcia catheter was not inserted. DRAINS: None. IMPLANTS: Small hemoclips in lumpectomy cavity. SPECIMENS: Left breast lumpectomy marked with 2 short sutures for superior, 2 long sutures for lateral, and ink for posterior margin. COMPLICATIONS: None. Procedure well tolerated and transferred to recovery room in stable condition. INDICATIONS FOR PROCEDURE: The patient is a 70-year-old female with a left breast DCIS. Given the above-mentioned information, she was recommended to undergo a left breast lumpectomy after SHAYLA Payment Analyst localization. The patient initially had been scheduled for a lumpectomy after SHAYLA Payment Analyst localization. The SHAYLA Payment Analyst implant was noted to be quite distant from the preoperative marker. She underwent an attempt for lumpectomy; however, the SHAYLA Payment Analyst implant could not be located. She was brought back to the hospital approximately a week or two later to confirm placement and verify whether the device was functional. At this time, she was not taken to the operating room, she was brought to the PACU area and a new SHAYLA Payment Analyst operating room device was brought to confirm whether the device was defective or it was the SHAYLA Payment Analyst implant. The patient was assessed with the new SHAYLA Payment Analyst for approximately 30 minutes without successful localization of the SHAYLA Payment Analyst, in spite of cross-referencing with imaging. Therefore, she was sent back to the radiology center to have a second SHAYLA Payment Analyst placed. This was successful and it was reportedly confirmed in the outpatient radiology center. Images were sent to in and reviewed revealing that there were 2 SHAYLA [address] and the preoperative marker. Per the radiologist, the preoperative marker had migrated and the last SHAYLA Payment Analyst implant was placed in the area of interest corresponding to the microcalcifications. The patient was rescheduled for the left breast lumpectomy today. The patient was met in the preoperative holding area. She had no questions at that time. The patient was assessed with a new SHAYLA Payment Analyst device to confirm whether the second SHAYLA Payment Analyst implant was functional. In the preoperative holding area, she was marked in the left breast indicating the correct site of surgery and then using the SHAYLA Payment Analyst device, the SHAYLA Payment Analyst was successfully identified. This area was marked for surgical reference. The patient had no questions at that time and she denied any changes since her last visit. DESCRIPTION OF PROCEDURE: The patient was taken to the operating room. She was placed in the dorsal decubitus position on the operating table. Once adequate anesthesia was achieved, the left breast was widely prepped and draped in the usual sterile fashion. My attention was directed towards the left breast. Using a sterilely draped SHAYLA Payment Analyst probe, the SHAYLA Payment Analyst implant was located. The area was marked and an incision was made over the area of interest after injecting 1% lidocaine/0.5% Marcaine. The dermis and subcutaneous tissue were incised to the level of the mammary tissue with electrocautery. Dense circumferential flaps were created. A very wide lumpectomy was performed around the area of interest, attempting to capture the preoperative marker as well as the initially placed SHAYLA Payment Analyst implant including the newest SHAYLA Payment Analyst implant. The lumpectomy was performed with the assistance of the SHAYLA Payment Analyst probe. Circumferential dissection and excision of the lumpectomy was performed. The specimen was marked in situ with 2 short sutures for superior, 2 long sutures for lateral, and then it was excised from the posterior margin marked with ink. The specimen was placed in a sterile container and sent to the radiology department for mammographic confirmation. The images were reviewed, confirming the presence of 2 SHAYLA Payment Analyst implants and a preoperative marker. The specimen was then sent to the pathology department for further examination. The wound was carefully examined. There was no evidence of active bleeding. Small hemoclips were placed at the 12, 6, 3, and 9 o'clock positions as well as the posterior margin, in order to serve as fiducial markers for future adjuvant radiation therapy. The dermis was approximated with several interrupted 3-0 Vicryl sutures. The skin was closed with 4-0 Monocryl in a subcuticular fashion. Sterile glue was applied. The patient tolerated well the procedure. There were no complications. She was successfully extubated in the operating room and transferred to recovery room in a stable condition. Jerardo Winters MD WBZonia/PIETRO/MANOHAR TID: [id number] RECEIPT: [id number]
[2025-04-17 09:40] VITALS: BP 124/68; PULSE 96; RESP 18; O2SAT 95
== END | disposition home or self-care (01) ==
LOC: SUR 06:09
DX: C50.912 Malignant neoplasm of unspecified site of left female breast (principal); I10 Essential (primary) hypertension; E78.00 Pure hypercholesterolemia, unspecified; E11.9 Type 2 diabetes mellitus without complications; G43.909 Migraine, unspecified, not intractable, without status migrainosus; J44.9 Chronic obstructive pulmonary disease, unspecified; Z98.890 Other specified postprocedural states; Z79.899 Other long term (current) drug therapy; Z98.891 History of uterine scar from previous surgery
CPT/HCPCS: 19301; 77066; 82962; 88305; 88342; J0690; J1171; J2003; J2250; J2405; J2704; J2765; J3010; J3490; J0131

== ENCOUNTER 2025-04-20 18:28 | Emergency (ER) | payer OTHER, MEDICAID ==
[~2025-04-20] VITALS: Ht 165.1 cm; Wt 81.8 kg
[~2025-04-20 18:28] MED LIST changes: -HYDROmorphone HCL 2 MG/ML VL/or syr IV PRN; -HYDROmorphone HCL 2 MG/ML VL/or syr ONE; -LIDOCAINE 2% (LOCAL ANESTH.) PF 5ml SDV ONE; -METOCLOPRAMIDE HCL 5MG/ml INJ 2ml VIAL ONE; -MIDAZOLAM HCL 2MG/2ML 2ml VIAL (1mg/ml) ONE; -ONDANSETRON HCL 4 MG/2 ML VIAL ONE; -PROPOFOL 10 MG/ML 20 ML IV ONE; -ceFAZolin 2 GM/D5W50ml 50 ML IV ONE; -fentaNYL CITRATE 100 MCG/2 ML VL ONE; -hydrALAZINE HCL 20 MG/ML VL IV PRN
--- NOTE | 2025-04-20 19:26 | ED.PDOC ---
History of Present Illness(SKN HPI Comments PATIENT HAD LEFT BREAST CANCER SURGERY HERE ON SUNDAY. PATIENT STATES TODAY SHE STARTED FEELING A "SWOOSHING" IN HER LEFT BREAST THIS MORNING. NO REDNESS, SWELLING, BRUISING NOTED. PT DENIES INCREASE IN PAIN, IS AFEBRILE. NO DRAINAGE. INCISION SITE IS INTACT. Time Seen by MD: 18:33 Primary Care Provider: DAREN History of Present Illness: Nurses Notes, Medications, Allergies Allergies: Coded Allergies: NO KNOWN ALLERGIES (Unverified , 01/10/20) Home Meds Reported Medications Fluticasone-Salmeterol (Wixela Inhub 100-50 Mcg/Dose) 1 Aer Aer, 1 AER IN PRN, AER 03/23/25 Xeliuda-Kvlzmcqtcortt-Iegoufao (Excedrin Extra Strength) Expr Gel Tab, 1 GEL PO PRN, TAB 03/23/25 Semaglutide (Ozempic) 2 Mg/3 Ml Inj, 2 MG SC QWEEKLY, INJ 03/23/25 Insulin Lispro (Human) (Humalog) 100 Unit/Ml Inj, 100 UNIT SC DAILY, INJ 03/23/25 Gabapentin (Gabapentin) 300 Mg Cap, 300 MG PO PRN, CAP 03/23/25 Fluoxetine Hcl (Fluoxetine Hcl) 20 Mg Tab, 20 MG PO DAILY, TAB 03/23/25 Cyclobenzaprine Hcl (Cyclobenzaprine Hcl) 5 Mg Tab, 10 MG PO BID, TAB 03/23/25 Omeprazole (Gnp Omeprazole) 20 Mg Tab, 20 MG PO DAILY, TAB 03/23/25 Losartan Potassium (Losartan Potassium) 100 Mg Tab, 100 MG PO DAILY for 30 Days, MG 07/18/18 Insulin Glargine (Lantus Solostar) 100 Unit/Ml Inj, 100 UNIT SC, INJ 07/18/18 Cholecalciferol (VITAMIN D3) 2,000 Unit Tab, 5000 UNIT OR, TAB 07/18/18 Fenofibrate (Fenofibrate) 160 Mg Tab, 1 TAB PO DAILY, #30 TAB 5 Refills 07/18/18 Simvastatin (Simvastatin) 20 Mg Tab, 20 MG PO DAILY for 30 Days 07/18/18 Information Source: Patient Past Medical History PAST MEDICAL HISTORY: Anxiety, COPD, DM, High Lipids, HTN Surgical History: Appendectomy, Cholecystectomy, Hysterectomy SR. MANAGER CORPORATE COMMUNICATIONS History: Denies all SR. MANAGER CORPORATE COMMUNICATIONS Hx Family History Family History: Unknown, Family hx of HTN Social History Smoker: Cigarettes, Less Than 1 Pack/Day Alcohol: Occasionally Drugs: Denies Drug Use Lives In: Home Constitutional: denies: chills, diaphoresis, fatigue, fever, malaise, sweats, weakness, others EENTM: denies: blurred vision, double vision, ear bleeding, ear discharge, ear drainage, ear pain, ear ringing, eye pain, eye redness, hearing loss, mouth pain, mouth swelling, nasal discharge, nose bleeding, nose congestion, nose pain, photophobia, tearing, throat pain, throat swelling, voice changes, others Respiratory: denies: cough, hemoptysis, orthopnea, SOB at rest, shortness of breath, SOB with excertion, stridor, wheezing, others Cardiovascular: denies: chest pain, dizzy spells, diaphoresis, Dyspnea on exertion, edema, irregular heart beat, left arm pain, lightheadedness, palpitations, PND, syncope, others Gastrointestinal: denies: abdomen distended, abdominal pain, blood streaked bowels, constipated, diarrhea, dysphagia, difficulty swallowing, hematemesis, melena, nausea, poor appetite, poor fluid intake, rectal bleeding, rectal pain, vomiting, others Genitourinary: denies: abnormal vagina bleeding, burning, dyspareunia, dysuria, flank pain, frequency, hematuria, incontinence, pain, , vagina discharge, urgency, others Neurological: denies: dizziness, fainting, headache, left sided numbness, left sided weakness, numbness, paresthesia, pre-existing deficit, right sided numbness, right sided weakness, seizure, speech problems, tingling, tremors, weakness, others Musculoskeletal: denies: back pain, gout, joint pain, joint swelling, muscle pain, muscle stiffness, neck pain, others Integumetry: reports: others (fluid inside left breast surgical site ); denies: bruises, change in color, change in hair/nails, dryness, laceration, lesions, lumps, rash, wounds Allergic/Immunocompromised: denies: Difficulty Healing, Frequent Infections, Hives, Itching, others Endocrine: denies: excessive hunger, excessive sweating, excessive thirst, excessive urination, flushing, intolerance to cold, intolerance to heat, unexplained weight gain, unexplained weight loss, others Psychiatric: denies: anxiety, bipolar disorder, depression, hopeless, panic disorder, schizophrenia, sleepless, suicidal, others Physical Exam General Appearance: No Apparent Distress, Normal HEENT: Normal ENT Inspection, Pharynx Normal, TMs Normal Neck: Full Range of Motion, Non-Tender Respiratory: Lungs Clear, No Respiratory Distress, Normal Breath Sounds Cardiovascular: No Edema, No JVD, No Murmur, No Gallop, Normal Peripheral Pulses, Regular Rate/Rhythm Breast Exam: Deferred Gastrointestinal: No Organomegaly, Non Tender, No Pulsatile Mass, Normal Bowel Sounds, Soft Genitalia: Deferred Pelvic: Deferred Rectal: Deferred Extremities: Normal capillary refill, Normal inspection, Normal range of motion, Non-tender, No pedal edema Musculoskeletal : Apperance: Normal Neurologic: Alert, No Motor Deficits, Normal Affect, Normal Mood, No Sensory Deficits Cerebellar Function: Normal Reflexes: NOT DONE Skin: Dry, Normal Color, Warm, Wounds (Left breast surgical site intact no noted erythema edema or drainage without streaking mild tenderness. Auscultated fluid inside breast) Lymphatic: No Adenopathy Was a procedure done? Was a procedure done?: No X-Ray, Labs, Meds, VS Vital Signs Date Time Temp Pulse Resp B/P (MAP) Pulse Ox O2 Delivery O2 Flow Rate FiO2 04/20/25 19:40 98.0 82 18 159/81 (107) 94 98.0 04/20/25 19:40 82 18 94 Room Air* 0 21 04/20/25 19:10 98.0 82 18 159/81 (107) 94 98.0 X-Ray, Labs, Meds, VS Comment Surgical site appears intact no noted erythema no noted signs of infection. Without Drainage. Advised patient to call surgeon's office 1st thing in the morning and schedule a sooner follow up. Advised to return to the ER for signs and symptoms of infection, fever, chills, redness, increasing pain, nausea, vomiting or any concerning symptoms. Patient indicated understanding and agrees with discharge plan of care. Time of 1ST Reevaluation: 18:33 Reevaluation 1ST: Improved Time of 2ND Reevaluation: 19:26 Reevaluation 2ND: Improved Patient Education/Counseling: Diagnosis, Treatment, Prognosis, Need For Follow Up Family Education/Counseling: No Family Present SEPSIS Sepsis Screen Vital Signs Date Time Temp Pulse Resp B/P (MAP) Pulse Ox O2 Delivery O2 Flow Rate FiO2 7/28/25 19:40 98.0 82 18 159/81 (107) 94 98.0 04/20/25 19:40 82 18 94 Room Air* 0 21 04/20/25 19:10 98.0 82 18 159/81 (107) 94 98.0 Departure 1 Departure Time of Disposition: :25 Impression: Primary Impression: Encounter for post surgical wound check Disposition: HOME / SELF CARE / HOMELESS Condition: Stable Discharged With: Self Critical Care Note Critical Care Time?: No Stability Stability form required: OMAR Rice Apr 20, 2025 19:26
[2025-04-20 19:40] VITALS: BP 159/81; PULSE 82; RESP 18; TEMP 98; O2SAT 94
== END 2025-04-20 19:40 | disposition home or self-care (01) ==
LOC: ER 18:28
DX: Z48.817 Encounter for surgical aftercare following surgery on the skin and subcutaneous tissue (principal); J44.9 Chronic obstructive pulmonary disease, unspecified; E11.9 Type 2 diabetes mellitus without complications; F17.210 Nicotine dependence, cigarettes, uncomplicated; F41.9 Anxiety disorder, unspecified; I10 Essential (primary) hypertension; Z90.710 Acquired absence of both cervix and uterus; Z90.49 Acquired absence of other specified parts of digestive tract

== ENCOUNTER → 2025-05-29 | Day surgery (SDC) | payer OTHER, MEDICAID ==
[~2025-05-29] VITALS: Ht 165.1 cm; Wt 83.5 kg
[~2025-05-29] MED LIST changes: +ACETAMINOPHEN IV 1000 MG/100ML (10MG/ML) IV PRN; +AMOX250C3 PO; +DOXY50CA PO; +HEPARIN SODIUM (PORCINE) 5000 UNITS/ML 1ML VIAL SC ONE; +HYDROmorphone HCL 2 MG/ML VL/or syr IV PRN; +HYDROmorphone HCL 2 MG/ML VL/or syr ONE; +ONDANSETRON HCL 4 MG/2 ML VIAL IV PRN; +ONDANSETRON HCL 4 MG/2 ML VIAL ONE; +PROPOFOL 10 MG/ML 20 ML IV ONE; +ceFAZolin 2 GM/D5W50ml 50 ML IV ONE; +fentaNYL CITRATE 100 MCG/2 ML VL ONE
[2025-05-29] MEDS: HEPARIN SODIUM (PORCINE) 5000 UNITS/ML 1ML VIAL ONE (11:00)
[2025-05-29] MEDS: LIDOCAINE 1% HCL (LOCAL ANESTH.) INJ 20ML MDV ONE (13:10)
[2025-05-29] MEDS: BUPIVACAINE 0.5% MPF INJ 30ML SDV IJ ONE (13:10)
[2025-05-29] MEDS: LYMPHAZURIN 1 % INJ 5ML VIAL SC ONE (13:11)
[2025-05-29 13:41] VITALS: PULSE 106; RESP 15; O2SAT 96
[2025-05-29 14:00] VITALS: PULSE 91; RESP 12; O2SAT 95
--- NOTE | 2025-05-29 14:11 | DVHOP ---
DATE OF SURGERY: 05/29/2025 PREOPERATIVE DIAGNOSIS: Left breast invasive ductal carcinoma. POSTOPERATIVE DIAGNOSIS: Left breast invasive ductal carcinoma. PROCEDURES: Left axillary sentinel lymph node biopsy. Injection of periareolar intradermal Lymphazurin. SURGEON: Jerardo Winters MD PERSONNEL COUNSELOR: None. ANESTHESIOLOGIST: Dr. Ramirez. ANESTHESIA: General by means of laryngeal mask airway. INTRAOPERATIVE FINDINGS: * Strong radioisotope signal in one sentinel lymph node. * Weak signal on a second axillary sentinel lymph node. * No further signal or Lymphazurin uptake within any axillary lymph node. * No background radioisotope after completion of the procedure. ESTIMATED BLOOD LOSS: Minimal. IV FLUIDS: Per anesthesia charting. URINE OUTPUT: Not recorded given Garcia catheter was not inserted. DRAINS: None. IMPLANTS: None. SPECIMENS: Axillary sentinel lymph node biopsy: * With Neoprobe 10-second count of 2598. [place] lymph node #2 with a Neoprobe 10-second count of 178. * Additional axillary lymph node and fat pad. COMPLICATIONS: None. Procedure well tolerated and transferred to recovery room in stable condition. INDICATIONS FOR PROCEDURE: The patient is an unfortunate 70-year-old female who underwent a lumpectomy for DCIS. Final pathology report revealed findings consistent with invasive ductal carcinoma. Therefore, she was recommended to undergo a left axillary sentinel lymph node biopsy, possible lymphadenectomy. The procedure, risks, and benefits were explained in a detailed and extensive fashion. All questions were answered. She understood and agreed to proceed. DESCRIPTION OF PROCEDURE: The patient was met in the preoperative holding area after completing her lymphoscintigraphy. She was marked in the left axillary region and transported to the operating room where she was placed in a dorsal decubitus position on the operating room table. Once adequate anesthesia was achieved, my attention was directed towards the left periareolar region, which was prepped with alcohol. Using a syringe with 5 mL of Lymphazurin, an intradermal periareolar Lymphazurin injection was completed. The breast was massaged for approximately 5 minutes. The breast and axillary region were widely prepped and draped in the usual sterile fashion. A sterilely draped Neoprobe demonstrated some weak activity in the axillary region and high activity in the periareolar region consistent with the injection site. Local anesthesia consisting of 1% lidocaine and 0.25% Marcaine was infiltrated in the left axillary region. An incision was made in the left axillary region. The subcutaneous tissue was incised to the level of the axillary fossa with electrocautery. Using the sterilely draped Neoprobe, the central node was identified with a strong signal. It was carefully dissected and a 10-second count was obtained up to 2598. A second sentinel lymph node was identified. The sentinel node was carefully dissected and excised. A 10-second count was obtained up to 178. There was no further radioisotope activity in the axillary fossa. There was no Lymphazurin uptake. The axillary fossa was inspected. There was no evidence of active bleeding. The subcutaneous tissue was approximated in two layers with 3-0 Vicryl sutures. The skin was closed with 4-0 Monocryl in a subcuticular fashion. The area was washed and dried and sterile glue was applied. The patient tolerated well the procedure. There were no complications. She was successfully extubated in the operating room and transferred to recovery room in stable condition. Jerardo Winters MD WBZonia/PIETRO TID: [id number] RECEIPT: [id number]
[2025-05-29 14:41] VITALS: BP 115/73; PULSE 76; RESP 14; O2SAT 96
== END | disposition home or self-care (01) ==
LOC: SUR 08:24
DX: C50.912 Malignant neoplasm of unspecified site of left female breast (principal); I12.9 Hypertensive chronic kidney disease with stage 1 through stage 4 chronic kidney disease, or unspecified chronic kidney disease; E11.22 Type 2 diabetes mellitus with diabetic chronic kidney disease; N18.30 Chronic kidney disease, stage 3 unspecified; J44.9 Chronic obstructive pulmonary disease, unspecified; E78.00 Pure hypercholesterolemia, unspecified; K21.9 Gastro-esophageal reflux disease without esophagitis; G43.909 Migraine, unspecified, not intractable, without status migrainosus; E66.9 Obesity, unspecified; Z68.30 Body mass index [BMI] 30.0-30.9, adult; Z79.899 Other long term (current) drug therapy; Z93.3 Colostomy status; Z98.891 History of uterine scar from previous surgery; Z98.890 Other specified postprocedural states
CPT/HCPCS: 38525; 38900; 82962; 86850; 86900; 86901; 88305; 88342; J0690; J1171; J1644; J2003; J2405; J2704; J3010; J3490; Q9968

== ENCOUNTER → 2025-05-29 | Outpatient (CLI) | payer OTHER, MEDICAID ==
[~2025-05-29] MED LIST changes: -ACETAMINOPHEN IV 1000 MG/100ML (10MG/ML) IV PRN; -HEPARIN SODIUM (PORCINE) 5000 UNITS/ML 1ML VIAL SC ONE; -HYDROmorphone HCL 2 MG/ML VL/or syr IV PRN; -HYDROmorphone HCL 2 MG/ML VL/or syr ONE; -ONDANSETRON HCL 4 MG/2 ML VIAL IV PRN; -ONDANSETRON HCL 4 MG/2 ML VIAL ONE; -PROPOFOL 10 MG/ML 20 ML IV ONE; -ceFAZolin 2 GM/D5W50ml 50 ML IV ONE; -fentaNYL CITRATE 100 MCG/2 ML VL ONE
--- NOTE | 2025-05-29 13:40 | DVH ---
NUCLEAR MEDICINE LYMPHOSCINTIGRAPHY HISTORY: INFILTRATING DUCT CARCINO TECHNIQUE/DOSE: 899 microCi Lymphoseek divided equally into 2 syringes. 2 intradermal injections arou nd the nipple of the left breast were performed at the 12:00 and 6:00 positions along the areola line . The left breast and axilla were immediately scanned for activity. FINDINGS/IMPRESSION: The 2 injection sites around the left nipple are visualized.
== END | disposition home or self-care (01) ==
LOC: XYW 08:22
DX: C50.912 Malignant neoplasm of unspecified site of left female breast (principal)
CPT/HCPCS: 78195; A9541

== ENCOUNTER 2025-07-05 16:47 | Emergency (ER) | payer OTHER, MEDICAID ==
[~2025-07-05] VITALS: Ht 165.1 cm; Wt 81.0 kg
[~2025-07-05 16:47] MED LIST changes: -HYDR-4902 PO
[2025-07-05] MEDS: SODIUM CHLORIDE 0.9% 1,000 ML IVB ONE (18:31)
[2025-07-05 18:33] LABS: Hematocrit 35.8 % (36.0-46.0); Hemoglobin 12.1 g/dL (12.2-16.2); Mean Corpuscular Hemoglobin 29.3 pg (28.0-32.0); Mean Corpuscular Volume 86.7 fL (80.0-100.0); Nucleated Red Blood Cells % 0.0 %
[2025-07-05 18:51] LABS: Alanine Aminotransferase 23 U/L (7-40); Albumin 4.1 g/dL (3.2-4.8); Anion Gap 11 (5-15); BUN/Creatinine Ratio 13.8 (10.0-20.0); Blood Urea Nitrogen 16 mg/dL (9-23); Calcium 9.2 mg/dL (8.7-10.4); Carbon Dioxide 27 mmol/L (20-31); Chloride 98 mmol/L (98-107); Total Protein 6.6 g/dL (5.7-8.2)
[2025-07-05 18:53] LABS: Alkaline Phosphatase 122 U/L (46-116); Bilirubin, Total 0.2 mg/dL (0.2-1.0); Glucose 312 mg/dL (74-106); Potassium 3.4 mmol/L (3.5-5.1); Sodium 136 mmol/L (136-145)
--- NOTE | 2025-07-05 19:20 | ED.PDOC ---
History of Present Illness HPI Comments 70 y/o F, with a Hx of DM, presents with c/c of anxiety and hypoglycemia. Patient reports on, accidentally, taking 60 units of Humalog instead of her prescribed 5 units prior to leaving out of town for personal family matters. She states on mistaking said Humalog with Basaglar. En route home, patient's Dexa com monitored notified her on her blood glucose dropping prior to coming to the ED. She states on eating 1x glucose tablets and sweet pastry bread prior to arrival. Denies any further acute symptoms at this time. Chief Complaint: Anxiety Time Seen by MD: 16:10 Primary Care Provider: DAREN Reviewed Notes: Nurses Notes, Medications, Allergies Allergies: Coded Allergies: NO KNOWN ALLERGIES (Unverified , 01/10/20) Home Meds Reported Medications Amoxicillin Trihydrate (Amoxicillin) 250 Mg Cap, 1 CAP PO TID, #30 CAP 05/26/25 Doxycycline Hyclate (Doxycycline Hyclate) 50 Mg Cap, 1 CAP PO BID, #60 CAP 1 Refill 05/26/25 Fluticasone-Salmeterol (Wixela Inhub 100-50 Mcg/Dose) 1 Aer Aer, 1 AER IN PRN, AER 03/23/25 Jvtrkhl-Obpieihkpsiji-Mecynyah (Excedrin Extra Strength) Expr Gel Tab, 1 GEL PO PRN, TAB 03/23/25 Semaglutide (Ozempic) 2 Mg/3 Ml Inj, 2 MG SC QWEEKLY, INJ 03/23/25 Insulin Lispro (Human) (Humalog) 100 Unit/Ml Inj, 100 UNIT SC DAILY, INJ 03/23/25 Gabapentin (Gabapentin) 300 Mg Cap, 300 MG PO PRN, CAP 03/23/25 Fluoxetine Hcl (Fluoxetine Hcl) 20 Mg Tab, 20 MG PO DAILY, TAB 03/23/25 Cyclobenzaprine Hcl (Cyclobenzaprine Hcl) 5 Mg Tab, 10 MG PO BID, TAB 03/23/25 Omeprazole (Gnp Omeprazole) 20 Mg Tab, 20 MG PO DAILY, TAB 03/23/25 Losartan Potassium (Losartan Potassium) 100 Mg Tab, 100 MG PO DAILY for 30 Days, MG 07/18/18 Insulin Glargine (Lantus Solostar) 100 Unit/Ml Inj, 100 UNIT SC, INJ 07/18/18 Cholecalciferol (VITAMIN D3) 2,000 Unit Tab, 5000 UNIT OR, TAB 07/18/18 Fenofibrate (Fenofibrate) 160 Mg Tab, 1 TAB PO DAILY, #30 TAB 5 Refills 07/18/18 Simvastatin (Simvastatin) 20 Mg Tab, 20 MG PO DAILY for 30 Days 07/18/18 Information Source: Patient Mode of Arrival: Ambulatory Severity: Moderate Timing: Hours Duration: Since onset Prehospital treatment: None Past Medical History PAST MEDICAL HISTORY: Anxiety, COPD, DM, High Lipids, HTN Surgical History: Appendectomy, Cholecystectomy, Hysterectomy PILLOW AGENT History: Denies all PILLOW AGENT Hx Family History Family History: Unknown, Family hx of HTN Social History Smoker: Cigarettes, Less Than 1 Pack/Day Alcohol: Occasionally Drugs: Denies Drug Use Lives In: Home All Other Systems: Reviewed and Negative (Comprehensive review of systems are negative unless stated in HPI) Physical Exam General Appearance: No Apparent Distress, Normal HEENT: Normal ENT Inspection, Pharynx Normal, TMs Normal Neck: Full Range of Motion, Non-Tender, Normal, Normal Inspection Respiratory: Chest Non-Tender, Lungs Clear, No Accessory Muscle Use, No Respiratory Distress, Normal Breath Sounds Cardiovascular: No Edema, No JVD, No Murmur, No Gallop, Normal Peripheral Pulses, Regular Rate/Rhythm Breast Exam: Deferred Gastrointestinal: No Organomegaly, Non Tender, No Pulsatile Mass, Normal Bowel Sounds, Soft Genitalia: Deferred Pelvic: Deferred Rectal: Deferred Extremities: No calf tenderness, Normal capillary refill, Normal inspection, Normal range of motion, Non-tender, No pedal edema Musculoskeletal : Apperance: Normal Neurologic: Alert, mechanical design engineer II-XII nml as Tested, No Motor Deficits, Normal Affect, Normal Mood, No Sensory Deficits Cerebellar Function: Normal Reflexes: Normal Skin: Dry, Normal Color, Warm Lymphatic: No Adenopathy Was a procedure done? Was a procedure done?: No Differential Dx Considerations may include: hypoglycemia, hyperglycemia, medication noncompliance, among others X-Ray, Labs, Meds, VS Vital Signs Date Time Temp Pulse Resp B/P (MAP) Pulse Ox O2 Delivery O2 Flow Rate FiO2 07/05/25 20:58 98.3 98 16 149/95 (113) 94 98.3 07/05/25 18:28 98.1 83 20 125/70 (88) 93 98.1 07/05/25 16:52 98.1 89 18 157/61 95 98.1 Lab Test 07/05/25 21:30 07/05/25 18:12 Range/Units Urine Color Colorless Yellow Urine Clarity Clear Clear Urine pH 5.5 5.0-9.0 Urine Specific Rogers 1.016 1.001-1.035 Urine Protein Negative Negative Urine Ketones Negative Negative Urine Blood Negative Negative /uL Urine Nitrite Negative Negative Urine Bilirubin Negative Negative Urine Urobilinogen Normal Negative mg/dL Urine Leukocyte Esterase Negative Negative /uL Urine RBC <1 0 - 4 /hpf Urine Microscopic WBC 0-5 /HPF Urine Squamous Epithelial Cells Few <5 /hpf Urine Bacteria None seen None Seen /hpf Urine Glucose 4+ H Normal mg/dL White Blood Count 8.4 4.4-10.8 10^3/uL Red Blood Count 4.13 4.0-5.20 10^6/uL Hemoglobin 12.1 L 12.2-16.2 g/dL Hematocrit 35.8 L 36.0-46.0 % Mean Corpuscular Volume 86.7 80.0-100.0 fL Mean Corpuscular Hemoglobin 29.3 28.0-32.0 pg Mean Corpuscular Hemoglobin Concent 33.8 32.0-36.0 g/dL Red Cell Distribution Width 13.0 11.8-14.3 % Platelet Count 228 140-450 10^3/uL Mean Platelet Volume 9.4 6.9-10.8 fL Neutrophils (%) (Auto) 58.9 37.0-80.0 % Lymphocytes (%) (Auto) 29.7 10.0-50.0 % Monocytes (%) (Auto) 7.6 0.0-12.0 % Eosinophils (%) (Auto) 3.3 0.0-7.0 % Basophils (%) (Auto) 0.5 0.0-2.0 % Neutrophils # (Auto) 4.9 1.6-8.6 10 ^3/uL Lymphocytes # (Auto) 2.5 0.4-5.4 10 ^3/uL Monocytes # (Auto) 0.6 0-1.3 10 ^3/uL Eosinophils # (Auto) 0.3 0-0.8 10 ^3/uL Basophils # (Auto) 0 0-0.2 10 ^3/uL Nucleated Red Blood Cells 0.0 % Sodium Level 136 136-145 mmol/L Potassium Level 3.4 L 3.5-5.1 mmol/L Chloride Level 98 98-107 mmol/L Carbon Dioxide Level 27 20-31 mmol/L Anion Gap 11 5-15 Blood Urea Nitrogen 16 9-23 mg/dL Creatinine 1.16 H 0.550-1.02 mg/dL Glomerular Filtration Rate Calc 51 >90 mL/min BUN/Creatinine Ratio 13.8 10.0-20.0 Serum Glucose 312 H 74-106 mg/dL Calcium Level 9.2 8.7-10.4 mg/dL Total Bilirubin 0.2 0.2-1.0 mg/dL Aspartate Amino Transferase (AST) 20 13-40 U/L Alanine Aminotransferase (ALT) 23 7-40 U/L Alkaline Phosphatase 122 H 46-116 U/L Total Protein 6.6 5.7-8.2 g/dL Albumin 4.1 3.2-4.8 g/dL Current Medications Medications (Trade) Dose Ordered Sig/Brody Route Start Time Stop Time Status Last Admin Sodium Chloride 1,000 ml @ 1,000 mls/hr Q1H ONCE IVB 07/05/25 18:00 07/05/25 18:59 DC 07/05/25 18:31 Time of 1ST Reevaluation: 16:40 Reevaluation 1ST: Unchanged Patient Education/Counseling: Diagnosis, Treatment Family Education/Counseling: No Family Present SEPSIS Sepsis Screen Date sepsis recognized/suspect: Jul 05, 2025 Time Sepsis recognized/suspect: 1657 Recent Procedure: No On Antibiotic Therapy: No Respiratory Rate >20: No Heart Rate >90: No Temp<36 C (96.8 F) or >38.3 C: No SBP <90 or MAP <65 mmHG: No New Acute Mental Status Change: No Is the patient on CPAP, BIPAP,: No Vital Signs Date Time Temp Pulse Resp B/P (MAP) Pulse Ox O2 Delivery O2 Flow Rate FiO2 07/05/25 20:58 98.3 98 16 149/95 (113) 94 98.3 07/05/25 18:28 98.1 83 20 125/70 (88) 93 98.1 07/05/25 16:52 98.1 89 18 157/61 95 98.1 Laboratory Tests Test 07/05/25 18:12 White Blood Count 8.4 10^3/uL (4.4-10.8) Medications Medications Dose Ordered Sig/Brody Route Start Time Stop Time Status Last Admin Dose Admin Sodium Chloride 1,000 ml @ 1,000 mls/hr Q1H ONCE IVB 07/05/25 18:00 07/05/25 18:59 DC 07/05/25 18:31 Departure 1 Departure Time of Disposition: 18:00 Impression: Primary Impression: Type 2 diabetes mellitus with hyperglycemia Additional Impression: Renal insufficiency Disposition: HOME / SELF CARE / HOMELESS Admit to: Med Surg Condition: Stable Discharged With: Self Critical Care Note Critical Care Time?: No Stability Stability form required: No Heart Score Heart Score: Heart Score Response (Comments) Value History N/A 0 EKG N/A 0 Age N/A 0 Risk Factors N/A 0 Troponin N/A 0 Total 0 I personally scribed for RIVERA SMITH MD ([email or web address]) on 07/05/25 at 19:20. Electronically submitted by Jovan Arambula [email or web address]). RIVERA SMITH MD Jul 05, 2025 19:20
[2025-07-05 20:58] VITALS: BP 149/95; PULSE 98; RESP 16; TEMP 98.3; O2SAT 94
[2025-07-05 22:20] LABS: Urine Protein, UAD Negative (Negative)
== END 2025-07-05 20:58 | disposition home or self-care (01) ==
LOC: ER 16:47
DX: E11.65 Type 2 diabetes mellitus with hyperglycemia (principal); N28.9 Disorder of kidney and ureter, unspecified; I10 Essential (primary) hypertension; F17.210 Nicotine dependence, cigarettes, uncomplicated; Z79.899 Other long term (current) drug therapy; Z90.710 Acquired absence of both cervix and uterus; Z90.49 Acquired absence of other specified parts of digestive tract
CPT/HCPCS: 36415; 80053; 81001; 85025; 96360; 99283; J7030

== ENCOUNTER 2025-07-29 09:21 | Emergency (ER) | payer MEDICAID, OTHER ==
[~2025-07-29] VITALS: Ht 165.1 cm; Wt 86.0 kg
--- NOTE | 2025-07-29 10:15 | ED.PDOC ---
History of present illness HPI Comments This is a 70 year old female presenting to the ED with chief complaint of hyperglycemia. Patient reports that she has been unable to get her blood glucose level under control for the past few days. Patient relays that she has been unable to receive chemotherapy for breast cancer for a week due to her blood g lucose being too high. Patient states that she is also experiencing an associated headache. Patient notes her BG was at 395 this morning. Patient denies any N/V/D, abdominal pain, chest pain, SOB, excess thirst, or frequent urination. Chief Complaint: Diabetes Time Seen by MD: 10:14 Primary Care Provider: DARNE History of present illness: Nurses Notes, Medications, Allergies Allergies: Coded Allergies: NO KNOWN ALLERGIES (Unverified , 01/10/20) Home Meds Reported Medications Amoxicillin Trihydrate (Amoxicillin) 250 Mg Cap, 1 CAP PO TID, #30 CAP 05/26/25 Doxycycline Hyclate (Doxycycline Hyclate) 50 Mg Cap, 1 CAP PO BID, #60 CAP 1 Refill 05/26/25 Fluticasone-Salmeterol (Wixela Inhub 100-50 Mcg/Dose) 1 Aer Aer, 1 AER IN PRN, AER 03/23/25 Yitgewh-Oyjnwpkmorohr-Uegikjbw (Excedrin Extra Strength) Expr Gel Tab, 1 GEL PO PRN, TAB 03/23/25 Semaglutide (Ozempic) 2 Mg/3 Ml Inj, 2 MG SC QWEEKLY, INJ 03/23/25 Insulin Lispro (Human) (Humalog) 100 Unit/Ml Inj, 100 UNIT SC DAILY, INJ 03/23/25 Gabapentin (Gabapentin) 300 Mg Cap, 300 MG PO PRN, CAP 03/23/25 Fluoxetine Hcl (Fluoxetine Hcl) 20 Mg Tab, 20 MG PO DAILY, TAB 03/23/25 Cyclobenzaprine Hcl (Cyclobenzaprine Hcl) 5 Mg Tab, 10 MG PO BID, TAB 03/23/25 Omeprazole (Gnp Omeprazole) 20 Mg Tab, 20 MG PO DAILY, TAB 03/23/25 Losartan Potassium (Losartan Potassium) 100 Mg Tab, 100 MG PO DAILY for 30 Days, MG 07/18/18 Insulin Glargine (Lantus Solostar) 100 Unit/Ml Inj, 100 UNIT SC, INJ 07/18/18 Cholecalciferol (VITAMIN D3) 2,000 Unit Tab, 5000 UNIT OR, TAB 07/18/18 Fenofibrate (Fenofibrate) 160 Mg Tab, 1 TAB PO DAILY, #30 TAB 5 Refills 07/18/18 Simvastatin (Simvastatin) 20 Mg Tab, 20 MG PO DAILY for 30 Days 07/18/18 Information Source: Patient Mode of Arrival: Ambulatory Timing: Days Duration: Since onset Prehospital treatment: None Cement: None History of: Diabetes, Insulin use Associated signs and symptoms: Headache Past Medical History PAST MEDICAL HISTORY: Anxiety, Cancer (Breast cancer), COPD, DM, High Lipids, HTN Surgical History: Appendectomy, Cholecystectomy, Hysterectomy CERTIFIED TRAVEL COUNSELOR History: Denies all CERTIFIED TRAVEL COUNSELOR Hx Family History Family History: Unknown, Family hx of HTN Social History Smoker: Cigarettes, Less Than 1 Pack/Day Alcohol: Occasionally Drugs: Denies Drug Use Lives In: Home Constitutional: denies: chills, diaphoresis, fatigue, fever, malaise, sweats, weakness, others EENTM: denies: blurred vision, double vision, ear bleeding, ear discharge, ear drainage, ear pain, ear ringing, eye pain, eye redness, hearing loss, mouth pain, mouth swelling, nasal discharge, nose bleeding, nose congestion, nose pain, photophobia, tearing, throat pain, throat swelling, voice changes, others Respiratory: denies: cough, hemoptysis, orthopnea, SOB at rest, shortness of breath, SOB with excertion, stridor, wheezing, others Cardiovascular: denies: chest pain, dizzy spells, diaphoresis, Dyspnea on exertion, edema, irregular heart beat, left arm pain, lightheadedness, pa lpitations, PND, syncope, others Gastrointestinal: denies: abdomen distended, abdominal pain, blood streaked bowels, constipated, diarrhea, dysphagia, difficulty swallowing, hematemesis, melena, nausea, poor appetite, poor fluid intake, rectal bleeding, rectal pain, vomiting, others Genitourinary: denies: abnormal vagina bleeding, burning, dyspareunia, dysuria, flank pain, frequency, hematuria, incontinence, pain, , vagina discharge, urgency, others Neurological: reports: headache; denies: dizziness, fainting, left sided numbness, left sided weakness, numbness, paresthesia, pre-existing deficit, right sided numbness, right sided weakness, seizure, speech problems, tingling, tremors, weakness, others Musculoskeletal: denies: back pain, gout, joint pain, joint swelling, muscle pain, muscle stiffness, neck pain, others Integumetry: denies: bruises, change in color, change in hair/nails, dryness, laceration, lesions, lumps, rash, wounds, others Allergic/Immunocompromised: denies: Difficulty Healing, Frequent Infections, Hives, Itching, others Hematologic/Lymphatic: denies: anemia, blood clots, easy bleeding, easy bruising, swollen glands, others Endocrine: denies: excessive hunger, excessive sweating, excessive thirst, excessive urination, flushing, intolerance to cold, intolerance to heat, unexplained weight gain, unexplained weight loss, others Psychiatric: denies: anxiety, bipolar disorder, depression, hopeless, panic disorder, schizophrenia, sleepless, suicidal, others All Other Systems: Reviewed and Negative Physical Exam General Appearance: No Apparent Distress, Normal HEENT: Normal ENT Inspection, Pharynx Normal, TMs Normal Neck: Full Range of Motion, Non-Tender, Normal, Normal Inspection Respiratory: Chest Non-Tender, Lungs Clear, No Accessory Muscle Use, No Respiratory Distress, Normal Breath Sounds Cardiovascular: No Edema, No JVD, No Murmur, No Gallop, Normal Peripheral Pulses, Regular Rate/Rhythm Breast Exam: Deferred Gastrointestinal: No Organomegaly, Non Tender, No Pulsatile Mass, Normal Bowel Sounds, Soft Genitalia: Deferred Pelvic: Deferred Rectal: Deferred Extremities: No calf tenderness, Normal capillary refill, Normal inspection, No rmal range of motion, Non-tender, No pedal edema Musculoskeletal : Apperance: Normal Neurologic: Alert, sports reporter II-XII nml as Tested, No Motor Deficits, Normal Affect, Normal Mood, No Sensory Deficits Cerebellar Function: Normal Reflexes: Normal Skin: Dry, Normal Color, Warm Lymphatic: No Adenopathy Was a procedure done? Was a procedure done?: No Differential Diagnosis (DM) Differential Diagnosis: Hyperglycemia X-Ray, Labs, Meds, VS Vital Signs Date Time Temp Pulse Resp B/P (MAP) Pulse Ox O2 Delivery O2 Flow Rate FiO2 07/29/25 09:27 98.0 89 15 191/88 94 98.0 Lab Test 07/29/25 12:50 07/29/25 11:44 Range/Units Urine Color Colorless Yellow Urine Clarity Clear Clear Urine pH 6.0 5.0-9.0 Urine Specific Bracey 1.018 1.001-1.035 Urine Protein Negative Negative Urine Ketones Negative Negative Urine Blood Negative Negative /uL Urine Nitrite Negative Negative Urine Bilirubin Negative Negative Urine Urobilinogen Normal Negative mg/dL Urine Leukocyte Esterase Negative Negative /uL Urine RBC <1 0 - 4 /hpf Urine Microscopic WBC < 1 0-5 /HPF Urine Squamous Epithelial Cells Few <5 /hpf Urine Bacteria None seen None Seen /hpf Urine Glucose 4+ H Normal mg/dL White Blood Count 14.0 H 4.4-10.8 10^3/uL Red Blood Count 4.33 4.0-5.20 10^6/uL Hemoglobin 12.6 12.2-16.2 g/dL Hematocrit 37.4 36.0-46.0 % Mean Corpuscular Volume 86.4 80.0-100.0 fL Mean Corpuscular Hemoglobin 29.2 28.0-32.0 pg Mean Corpuscular Hemoglobin Concent 33.8 32.0-36.0 g/dL Red Cell Distribution Width 13.6 11.8-14.3 % Platelet Count 272 140-450 10^3/uL Mean Platelet Volume 9.7 6.9-10.8 fL Neutrophils (%) (Auto) 72.0 37.0-80.0 % Lymphocytes (%) (Auto) 20.9 10.0-50.0 % Monocytes (%) (Auto) 6.5 0.0-12.0 % Eosinophils (%) (Auto) 0.4 0.0-7.0 % Basophils (%) (Auto) 0.2 0.0-2.0 % Neutrophils # (Auto) 10.1 H 1.6-8.6 10 ^3/uL Lymphocytes # (Auto) 2.9 0.4-5.4 10 ^3/uL Monocytes # (Auto) 0.9 0-1.3 10 ^3/uL Eosinophils # (Auto) 0.1 0-0.8 10 ^3/uL Basophils # (Auto) 0 0-0.2 10 ^3/uL Nucleated Red Blood Cells 0.1 % Sodium Level 136 136-145 mmol/L Potassium Level 3.3 L 3.5-5.1 mmol/L Chloride Level 98 98-107 mmol/L Carbon Dioxide Level 28 20-31 mmol/L Anion Gap 10 5-15 Blood Urea Nitrogen 14 9-23 mg/dL Creatinine 0.93 0.550-1.02 mg/dL Glomerular Filtration Rate Calc 67 >90 mL/min BUN/Creatinine Ratio 15.1 10.0-20.0 Serum Glucose 248 H 74-106 mg/dL Calcium Level 9.8 8.7-10.4 mg/dL Troponin I High Sensitivity 6 </=34 ng/L Time of 1ST Reevaluation: 11:13 Reevaluation 1ST: Unchanged Patient Education/Counseling: Diagnosis, Treatment Family Education/Counseling: Diagnosis, Treatment SEPSIS Sepsis Screen Date sepsis recognized/suspect: Jul 29, 2025 Time Sepsis recognized/suspect: 928 Recent Procedure: No On Antibiotic Therapy: No Respiratory Rate >20: No Heart Rate >90: No Temp<36 C (96.8 F) or >38.3 C: No SBP <90 or MAP <65 mmHG: No New Acute Mental Status Change: No Is the patient on CPAP, BIPAP,: No Physician Orders Chest Portable (07/29/25 11:27) Vital Signs Date Time Temp Pulse Resp B/P (MAP) Pulse Ox O2 Delivery O2 Flow Rate FiO2 07/29/25 09:27 98.0 89 15 191/88 94 98.0 Laboratory Tests Test 07/29/25 11:44 White Blood Count 14.0 10^3/uL (4.4-10.8) H Departure 1 Departure Time of Disposition: 13:29 (Patient's workup is benign patient is otherwise feeling well. We will discharge patient home) Impression: Primary Impression: Type 2 diabetes mellitus with hyperglycemia Disposition: 01 HOME / SELF CARE / HOMELESS Condition: Stable Additional Instructions: Your workup today was benign. You should follow up with your regular doctor within 1 week. You should stay well rested and well hydrated. If your symptoms worsen or you have any other concerns please return to the emergency room. Discharged With: Self Critical Care Note Critical Care Time?: No Stability Stability form required: No Heart Score Heart Score: Heart Score Response (Comments) Value History N/A 0 EKG N/A 0 Age N/A 0 Risk Factors N/A 0 Troponin N/A 0 Total 0 I personally scribed for VANCE SINGH MD ([email or web address]) on 07/29/25 at 10:15. Electronically submitted by Mario [email or web address]). VANCE SINGH MD Jul 29, 2025 10:15
--- NOTE | 2025-07-29 12:35 | DVH ---
INDICATION: weakness TECHNIQUE: Frontal view of the chest. COMPARISON: XR CHEST 2 VIEW on DOS: 07/04/25, XR CHEST 2 VIEW on DOS: 05/21/25, XR CHEST 2 VIEW on DOS: 01/12/25, CR CHEST 2 VIEW on DOS: 06/10/24, CT CHEST WO on DOS: 03/04/24 FINDINGS: Right chest port tip in the cavoatrial junction. The heart and mediastinal contours are grossly unremarkable. There is no evidence of pleural disease. The lungs are clear. The bony structures of the chest are intact without fracture. IMPRESSION: 1. No evidence of acute disease.
[2025-07-29 12:43] LABS: Hematocrit 37.4 % (36.0-46.0); Hemoglobin 12.6 g/dL (12.2-16.2); Mean Corpuscular Hemoglobin 29.2 pg (28.0-32.0); Mean Corpuscular Volume 86.4 fL (80.0-100.0); Nucleated Red Blood Cells % 0.1 %
[2025-07-29 12:53] LABS: Chloride 98 mmol/L (98-107); Sodium 136 mmol/L (136-145)
[2025-07-29 12:54] LABS: Anion Gap 10 (5-15); Carbon Dioxide 28 mmol/L (20-31)
[2025-07-29 12:55] LABS: Calcium 9.8 mg/dL (8.7-10.4)
[2025-07-29 13:00] LABS: BUN/Creatinine Ratio 15.1 (10.0-20.0); Blood Urea Nitrogen 14 mg/dL (9-23)
[2025-07-29 13:01] LABS: Glucose 248 mg/dL (74-106); Potassium 3.3 mmol/L (3.5-5.1)
[2025-07-29 13:09] LABS: Urine Protein, UAD Negative (Negative)
[2025-07-29] MEDS: SODIUM CHLORIDE 0.9% 1,000 ML IV ONE (13:29)
[2025-07-29 14:32] VITALS: BP 167/82; PULSE 74; RESP 16; TEMP 97.6; O2SAT 97
== END 2025-07-29 14:38 | disposition home or self-care (01) ==
LOC: ER 09:26
DX: E11.65 Type 2 diabetes mellitus with hyperglycemia (principal); I10 Essential (primary) hypertension; F17.210 Nicotine dependence, cigarettes, uncomplicated; Z90.49 Acquired absence of other specified parts of digestive tract; Z90.710 Acquired absence of both cervix and uterus; Z79.899 Other long term (current) drug therapy
CPT/HCPCS: 36415; 71045; 80048; 81001; 84484; 85025; 96360; 99284; J7030